=== PATIENT | female | born 1960 | race Caucasian/White ===

== ENCOUNTER 2018-02-24 13:48 | Emergency (ER) | payer OTHER, SELFPAY ==
[2018-02-24 13:51] VITALS: BP 158/100; PULSE 68; RESP 16; TEMP 36.7; O2SAT 97
--- NOTE | 2018-02-24 14:32 | ED.GENADUL_ITS ---
Disposition Clinical Impression: Laceration of finger Disposition: HOME Condition: Good Instructions: Care For Your Stitches (ED), Finger Laceration (ED) Additional Instructions: Please keep the area dry for the next 36 hours and you can then wash gently with soap and water. Please change her bandage daily. Please follow-up with your primary care provider in 7-10 days for suture removal. If you notice any drainage, redness, warmth, fever, or chills please return immediately for reevaluation. Referrals: Bernice Palmer NP [Primary Care Provider] - Medical Decision Making - Medical Decision Making This is a 57-year-old female who presents with a laceration on her fifth digit on her right dominant hand. It is U-shaped in nature. Linear aside for the U-shaped component. Sensation was intact, tetanus is updated. The patient's finger was anesthetized with 1% lidocaine, 5 cc total. The area was then cleaned and scrubbed vigorously with chlorhexidine and irrigated with copious amounts of normal saline, the area was then sutured with 6 simple interrupted sutures. This is performed with 6-0 Vicryl. Patient tolerated this well. No complications, good wound edge reapproximation hemostasis. This time a feel that the patient be safely discharged home with close follow-up with her PCP. We discussed red flags which returned the patient understands. I have extensively reviewed the treatment plan and discharge instructions with the patient. I have addressed all patient concerns at this time. The patient was made aware of what symptoms to monitor for that would warrant a return to the emergency department. Discussed the plan with the patient, they demonstrate verbal understanding and agreement with our assessment and plan at this time. History of Present Illness - General Chief complaint: Laceration Stated complaint: FINGER LACERATION Time Seen by Provider: 02/24/18 14:30 - History of Present Illness Initial comments: This is a 57-year-old female with no past medical history who presents for laceration of her right pinky finger. Patient states that 1 hour prior to arrival she was slicing vegetables with a clean knife when she cut the medial aspect of her pinky on her right dominant hand. She put pressure and bandaging on this and came to the ER for further evaluation. She denies any pain, numbness, or tingling. Her tetanus is up-to-date. Patient denies any other complaints at this time. She denies any numbness or tingling or radiation of the pain. She is not on any blood thinners. She denies any pertinent surgical family or social history. - Related Data Ascorbic Acid [Vitamin C] 500 mg PO DAILY 01/22/14 Multivitamin [Multi-Vitamin Daily] 1 each PO 01/22/14 Vitamin B Complex 1 each PO DAILY 01/22/14 Cholecalciferol (Vitamin D3) [Vitamin D3] 1,000 unit PO DAILY 05/12/14 Ubidecarenone [Coq-10] 100 mg PO BID 05/12/14 Magnesium Amino Acid Chelate [Magnesium] 27 mg PO DAILY #30 t 06/12/14 Tumeric TID 12/11/14 Calcium Carbonate [Calcium] 500 mg PO DAILY #1 04/06/15 Metaxalone [Skelaxin] 800 mg PO TID #60 tab-cap 04/26/16 Flaxseed Oil [Flax Seed Oil] 1,000 mg PO DAILY 09/26/16 Gluc 2Kcl/Chondr/Dione Hy/Hy AC [Glucosamine & Chondroitin Cap] 1 each PO DAILY 10/18/16 Allergies Allergy/AdvReac Type Severity Reaction Status Date / Time lisinopril AdvReac Intermediate Unverified 02/24/18 14:02 Review of Systems Other: 10 point review of systems was performed, pertinent positives and negatives are noted in the history of present illness. Past Medical History - Past Medical History Medical history: hypertension Surgical history: bilateral tubal ligation Family history: cancer (Father of cancer), diabetes (Grandparent and brother have diabetes) - Social History Alcohol use: rarely Drug use: none General Exam - Other Other exam information: 1.Const: Well-nourished, Well-developed, appearing stated age 2.Eyes: PERRL, no conjunctival injection, and symmetrical lids. 3.ENT: Atraumatic external nose and ears. Moist MM. Neck: Symmetric, trachea midline, No thyromegaly. 4.CVS: +S1/S2, No murmurs or gallops. Peripheral pulses 2+ and equal in all extremities. Brisk capillary refill in all extremities. 5.RESP: Unlabored respiratory effort. Clear to auscultation bilaterally. No wheezes rales or rhonchi 6.GI: Soft, Nontender/Nondistended, No hepatosplenomegaly. No guarding or rebound. 7.MSK: Normocephalic. No cyanosis or clubbing, Normal movement of all extremities. 8.Skin: Warm, Dry. Patient demonstrates a U-shaped laceration on the medial aspect of her fifth digit on the right hand, total length is 2 cm. There is a notable flap of skin. Mild bleeding. Sensation is intact. Normal movement of the extremity with normal flexion extension of the pinky with no abnormalities. 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 Sensation grossly intact, no focal neurologic deficits. 10.Psych: (AAO) x3. Appropriate mood and affect Course Vital Signs - 24 hr 02/24/18 13:51 Temperature 36.7 C Pulse 68 Respiratory 16 Rate Blood Pressure 158/100 Pulse Oximetry 97
== END 2018-02-24 14:50 | disposition home or self-care (01) ==
PROVIDERS: Emergency Provider Student in an Organized Health Care Education/Training Program; PCP Nurse Practitioner
DX: S61.216A Laceration without foreign body of right little finger without damage to nail, initial encounter (principal); W26.0XXA Contact with knife, initial encounter; Y93.G1 Activity, food preparation and clean up; I10 Essential (primary) hypertension
CPT/HCPCS: 12001

== ENCOUNTER 2018-03-05 11:30 | Emergency (ER) | payer OTHER, SELFPAY ==
[2018-03-05 11:36] VITALS: BP 143/77; PULSE 74; RESP 16; TEMP 36.7; O2SAT 96
--- NOTE | 2018-03-05 11:59 | W.ED.GENAD ---
Discharge Plan Discharge Details Chief Complaint: SutureRem Clinical Impression: Encounter for removal of sutures Primary Care Provider: Bernice Palmer ED Provider: Elaine Lockett Disposition Patient Disposition: HOME Condition: Good Home Meds and New Rx's Prescriptions: Continue multivitamin [Daily Multi-Vitamin] 1 EACH tablet 1 ea PO RF: 0 ascorbic acid (vitamin C) [Vitamin C] 500 MG tablet 500 mg PO DAILY RF: 0 vitamin B complex 1 EACH tablet 1 ea PO DAILY RF: 0 coenzyme Q10 [CoQ-10] 100 MG capsule 100 mg PO BID RF: 0 cholecalciferol (vitamin D3) 1,000 UNIT capsule 1,000 unit PO DAILY RF: 0 magnesium amino acid chelate 27 MG tablet 27 mg PO DAILY Qty: 30 RF: 12 tumeric TID RF: 0 calcium carbonate [Calcium 500] 500 MG tablet 500 mg PO DAILY Qty: 1 RF: 0 metaxalone [Skelaxin] 800 MG tablet 800 mg PO TID Qty: 60 RF: 3 flaxseed oil 1,000 MG capsule 1,000 mg PO DAILY RF: 0 glucosam-chond kv-lggftr-[id number] ac 1 EACH capsule 1 ea PO DAILY RF: 0 Discharge Instructions Instructions: Laceration (ED) Additional Instructions: Keep wound clean and dry. Wash with running water but do not soak or submerge as this will increase your risk of infection. If you develop redness, warmth, drainage, increased pain, fevers/chills or other new/worsening symptoms please seek care urgently once again. Do not attempt to pop your collection of blood. Follow up with primary care as needed. Referrals: Bernice Palmer, RAFA [Primary Care Provider] - Discharge Data Discharge Date/Time-TO BE ENTERED AT DEPARTURE: 03/05/18 12:15 Medical Decision Making [facility] Narrative Medical decision making narrative: Patient presents with chief complaint of suture removal. Patient had sutures placed for laceration to the ulnar side of the 5th digits right hand. Wound is healing without signs of infection. However, she is noted to have a hematoma that is well defined. No pain with palpation. She has limited sensation over the hematoma, otherwise intact. Hematoma is approximately 7mm in diameter. She is feeling well. We discusses signs and symptoms of infection and when to seek care urgently once again. #6 sutures were removed by myself. Wound is healing well with well intact edges. Advised on activies that may increase risk of infection. All of her questions and concerns were addressed, she is in agreement with this plan. HPI - General Adult General Date/Time Provider Initiated Documentation: 03/05/18 11:35. Limitations to Documentation: no limitations. Information obtained by: patient. History of Present Illness 57 year old F presents to the emergency department with the chief complaint of suture removal, Quality is described as other (none), and is localized to the right and upper extremity (5ht digit). Patient reports no radiation. Related Data Home Medications Medication Instructions Recorded Confirmed ascorbic acid (vitamin C) [Vitamin 500 mg PO DAILY 01/22/14 02/24/18 C] multivitamin [Daily Multi-Vitamin] 1 ea PO 01/22/14 01/29/14 vitamin B complex 1 ea PO DAILY 01/22/14 02/24/18 cholecalciferol (vitamin D3) 1,000 unit PO DAILY 05/12/14 02/24/18 coenzyme Q10 [CoQ-10] 100 mg PO BID 05/12/14 02/24/18 Tumeric TID 12/11/14 flaxseed oil 1,000 mg PO DAILY 09/26/16 02/24/18 glucosam-chond uy-qndkfl-fu ac 1 ea PO DAILY 10/18/16 02/24/18 Allergies Allergy/AdvReac Type Severity Reaction Status Date / Time lisinopril AdvReac Intermediate Unverified 02/24/18 14:02 General Stated Complaint: SutureRem TAMIKA: 5 Review of Systems Constitutional Reports as per HPI, Denies chills and Denies fever(s) Respiratory Comments: no symptoms reported Musculoskeletal Reports as per HPI and Reports numbness (over darkened area) Integumentary/Breasts Reports as per HPI Neurologic Reports as per HPI and Reports numbness (over darkened area) PFSH Family History Mother Sleep apnea Heart disease Father Personal history of malignant neoplasm Sister No problems noted. Brother Diabetes Brother No problems noted. Brother No problems noted. Brother No problems noted. Social History Smoking/Tobacco Use Status: Never Surgical History Ligation of fallopian tube (10/11/05) Exam Const General: cooperative, healthy appearing, comfortable, no acute distress and well developed Nutritional Appearance: average body habitus Orientation: alert and awake Resp Effort & Inspection: normal respiratory effort and no respiratory distress Skin General skin exam: rashes and/or lesions noted (Patient has well healing laceration to the ulnar side of the right 5th digit. No signs of infection. No pain with palpation. She has a well defined darkened area, consistent with a small hematoma along the ulnar side of the sound. The laceration itself does not seem to be involved, proximal to th) Lesions: lesion noted Rashes: no rashes Trauma: laceration (as above) Nails: normal Neuro General: alert and awake Cognition: normal cognition Speech: speech normal Gait: normal gait Sensory Exam: sensory deficits noted (patient has limited sensation over the darkened area which appears to be a healing hematoma. Sensation in digit otherwise intact.) Extrem General: abnormal to inspection (as above), full ROM and normal capillary refill Course Vital Signs Temperature 36.7 C 03/05/18 11:36 Pulse 74 03/05/18 11:36 Respiratory Rate 16 03/05/18 11:36 Blood Pressure 143/77 H 03/05/18 11:36 Pulse Oximetry 96 03/05/18 11:36 Temperature 36.7 C 03/05/18 11:36 Pulse 74 03/05/18 11:36 Respiratory Rate 16 03/05/18 11:36 Blood Pressure 143/77 H 03/05/18 11:36 Pulse Oximetry 96 03/05/18 11:36
--- NOTE | 2018-03-05 12:04 | ED.GENADUL_ITS ---
Discharge Plan Discharge Details Chief Complaint: SutureRem Clinical Impression: Encounter for removal of sutures Primary Care Provider: Bernice Palmer ED Provider: Elaine Lockett Disposition Patient Disposition: HOME Condition: Good Home Meds and New Rx's Prescriptions: Continue multivitamin [Daily Multi-Vitamin] 1 EACH tablet 1 ea PO RF: 0 ascorbic acid (vitamin C) [Vitamin C] 500 MG tablet 500 mg PO DAILY RF: 0 vitamin B complex 1 EACH tablet 1 ea PO DAILY RF: 0 coenzyme Q10 [CoQ-10] 100 MG capsule 100 mg PO BID RF: 0 cholecalciferol (vitamin D3) 1,000 UNIT capsule 1,000 unit PO DAILY RF: 0 magnesium amino acid chelate 27 MG tablet 27 mg PO DAILY Qty: 30 RF: 12 tumeric TID RF: 0 calcium carbonate [Calcium 500] 500 MG tablet 500 mg PO DAILY Qty: 1 RF: 0 metaxalone [Skelaxin] 800 MG tablet 800 mg PO TID Qty: 60 RF: 3 flaxseed oil 1,000 MG capsule 1,000 mg PO DAILY RF: 0 glucosam-chond lj-qwfwcy-rl ac 1 EACH capsule 1 ea PO DAILY RF: 0 Discharge Instructions Instructions: Laceration (ED) Additional Instructions: Keep wound clean and dry. Wash with running water but do not soak or submerge as this will increase your risk of infection. If you develop redness, warmth, drainage, increased pain, fevers/chills or other new/worsening symptoms please seek care urgently once again. Do not attempt to pop your collection of blood. Follow up with primary care as needed. Referrals: Bernice Palmer, RAFA [Primary Care Provider] - Discharge Data Discharge Date/Time-TO BE ENTERED AT DEPARTURE: 03/05/18 12:15 Medical Decision Making [facility] Narrative Medical decision making narrative: Patient presents with chief complaint of suture removal. Patient had sutures placed for laceration to the ulnar side of the 5th digits right hand. Wound is healing without signs of infection. However , she is noted to have a hematoma that is well defined. No pain with palpation. She has limited sensation over the hematoma, otherwise intact. Hematoma is approximately 7mm in diameter. She is feeling well. We discusses signs and symptoms of infection and when to seek care urgently once again. #6 sutures were removed by myself. Wound is healing well with well intact edges. Advised on activies that may increase risk of infection. All of her questions and concerns were addressed, she is in agreement with this plan. HPI - General Adult General Date/Time Provider Initiated Documentation: 03/05/18 11:35 . Limitations to Documentation: no limitations . Information obtained by: patient . History of Present Illness 57 year old F presents to the emergency department with the chief complaint of suture removal, Quality is described as other (none), and is localized to the right and upper extremity (5ht digit). Patient reports no radiation. Related Data Home Medications Medication Instructions Recorded Confirmed ascorbic acid (vitamin C) [Vitamin 500 mg PO DAILY 01/22/14 02/24/18 C] multivitamin [Daily Multi-Vitamin] 1 ea PO 01/22/14 01/29/14 vitamin B complex 1 ea PO DAILY 01/22/14 02/24/18 cholecalciferol (vitamin D3) 1,000 unit PO DAILY 05/12/14 02/24/18 coenzyme Q10 [CoQ-10] 100 mg PO BID 05/12/14 02/24/18 Tumeric TID 12/11/14 flaxseed oil 1,000 mg PO DAILY 09/26/16 02/24/18 glucosam-chond eh-[id number]-[id number] ac 1 ea PO DAILY 10/18/16 02/24/18 Allergies Allergy/AdvReac Type Severity Reaction Status Date / Time lisinopril AdvReac Intermediate Unverified 02/24/18 14:02 General Stated Complaint: SutureRem TAMIKA: 5 Review of Systems Constitutional Reports as per HPI, Denies chills and Denies fever(s) Respiratory Comments: no symptoms reported Musculoskeletal Reports as per HPI and Reports numbness (over darkened area) Integumentary/Breasts Reports as per HPI Neurologic Reports as per HPI and Reports numbness (over darkened area) PFSH Family History Mother Sleep apnea Heart disease Father Personal history of malignant neoplasm Sister No problems noted. Brother Diabetes Brother No problems noted. Brother No problems noted. Brother No problems noted. Social History Smoking/Tobacco Use Status: Never Surgical History Ligation of fallopian tube (10/11/05) Exam Const General: cooperative, healthy appearing, comfortable, no acute distress and well developed Nutritional Appearance: average body habitus Orientation: alert and awake Resp Effort & Inspection: normal respiratory effort and no respiratory distress Skin General skin exam: rashes and/or lesions noted (Patient has well healing laceration to the ulnar side of the right 5th digit. No signs of infection. No pain with palpation. She has a well defined darkened area, consistent with a small hematoma along the ulnar side of the sound. The laceration itself does not seem to be involved, proximal to th) Lesions: lesion noted Rashes: no rashes Trauma: laceration (as above) Nails: normal Neuro General: alert and awake Cognition: normal cognition Speech: speech normal Gait: normal gait Sensory Exam: sensory deficits noted (patient has limited sensation over the darkened area which appears to be a healing hematoma. Sensation in digit otherwise intact.) Extrem General: abnormal to inspection (as above), full ROM and normal capillary refill Course Vital Signs Temperature 36.7 C 03/05/18 11:36 Pulse 74 03/05/18 11:36 Respiratory Rate 16 03/05/18 11:36 Blood Pressure 143/77 H 03/05/18 11:36 Pulse Oximetry 96 03/05/18 11:36 Temperature 36.7 C 03/05/18 11:36 Pulse 74 03/05/18 11:36 Respiratory Rate 16 03/05/18 11:36 Blood Pressure 143/77 H 03/05/18 11:36 Pulse Oximetry 96 03/05/18 11:36
== END 2018-03-05 12:15 | disposition home or self-care (01) ==
PROVIDERS: Emergency Provider Physician Assistant; PCP Nurse Practitioner
DX: S61.216D Laceration without foreign body of right little finger without damage to nail, subsequent encounter (principal); W26.0XXD Contact with knife, subsequent encounter; Z48.02 Encounter for removal of sutures

== ENCOUNTER 2018-04-08 08:46 | Outpatient (CLI) | payer OTHER, SELFPAY ==
[2018-04-08 09:31] LABS: HCT 41.6 % (36.0-46.0); HGB 14.2 g/dL (12.0-15.5); Mean Corp. HGB Concentration 34.1 g/dL (32.0-36.0); Mean Corpuscular Volume 85.1 fL (80-95); Mean Platelet Volume 10.2 fL (8.0-11.0); Platelet Count 200 x1000/uL (130-400); RBC 4.89 m/cumm (4.00-5.20); RBC Distribution Width 12.8 % (11.7-14.6); White Blood Cell Count 5.42 k/cumm (4.4-10.8)
[2018-04-08 10:19] LABS: ALT 32 U/L (12-78); AST 31 U/L (15-37); Albumin 3.9 g/dL (3.4-5.0); Alkaline Phosphatase 70 U/L (46-116); Anion Gap 5.2 mmol/L (3-11); BUN 19 mg/dL (7-18); Bilirubin, Total 1.2 mg/dL (0.2-1.0); CO2 29.8 mmol/L (21.0-32.0); CREATININE 0.78 mg/dL (0.55-1.02); Calcium 8.8 mg/dL (8.5-10.1); Chloride 106 mmol/L (98-107); Cholesterol 199 mg/dL (50-200); Glucose 96 mg/dL (70-100); HDL Cholesterol 69 mg/dL (40-60); LDL CHOLESTEROL 120 mg/dL (<100); Potassium 4.3 mmol/L (3.5-5.1); Sodium 141 mmol/L (136-145); TSH (W/Ref FT4) 1.08 uIU/mL (0.358-3.74); Total Protein 6.9 g/dL (6.4-8.2); Triglyceride 79 mg/dL (30-150)
== END 2018-04-08 09:06 ==
PROVIDERS: PCP Nurse Practitioner; Visit Provider Nurse Practitioner
DX: E04.2 Nontoxic multinodular goiter (principal); K21.9 Gastro-esophageal reflux disease without esophagitis; Z00.00 Encounter for general adult medical examination without abnormal findings; G47.33 Obstructive sleep apnea (adult) (pediatric)
CPT/HCPCS: 36415; 80053; 80061; 83721; 85027; 84443

== ENCOUNTER 2018-04-24 01:25 | Outpatient (CLI) | payer OTHER, SELFPAY ==
--- NOTE | 2018-04-24 08:50 | DI.MAMMO_ITS ---
SYMPTOM/DIAGNOSIS: SCREENING, Z12.31 MAMMOGRAMS: Mammograms were interpreted according to the usual protocol including computer analysis with CAD system, tomosynthesis and C view imaging. Comparison is made with exams from [id number]. The breasts are composed of scattered fibroglandular densities. Scattered benign skin calcifications are again noted. No suspicious masses or suspicious microcalcifications are seen. There has been no significant change. IMPRESSION: Category 2B, negative mammogram with benign findings. Routine screening is recommended. SA ASSESSMENT OF FINDINGS: Negative with benign findings. Category 2. Patient will receive a letter notifying them of these results. BI-RADS category B. There are scattered areas of fibroglandular density.
== END 2018-04-24 01:45 ==
PROVIDERS: PCP Nurse Practitioner; Visit Provider Nurse Practitioner Women's Health
DX: Z12.31 Encounter for screening mammogram for malignant neoplasm of breast (principal)
CPT/HCPCS: 77063; 77067

== ENCOUNTER 2018-09-30 00:37 | Outpatient (CLI) | payer OTHER, SELFPAY ==
--- NOTE | 2018-09-30 16:00 | DI.US_ITS ---
SYMPTOM/DIAGNOSIS: MULTI NODULAR GOITER, E04.2 THYROID ULTRASOUND: The right thyroid lobe measures 5.4 by 1.9 by 2.4 cm. and contains multiple nodules, the largest of which measures 15 by 14 by 11 mm. The isthmus is 7.5 mm. thick and also contains multiple nodules. The left thyroid lobe measures 5.11 by 1.6 by 2.5 cm. Numerous nodular regions are noted in the left thyroid lobe, the largest of which measures 2.5 by 2.8 by 1.7 cm. SUMMARY: An enlarged multi nodular thyroid gland is demonstrated.
== END 2018-09-30 00:57 ==
PROVIDERS: PCP Nurse Practitioner; Visit Provider Otolaryngology
DX: E04.2 Nontoxic multinodular goiter (principal)
CPT/HCPCS: 76536

== ENCOUNTER 2018-12-26 09:05 | Outpatient (CLI) | payer OTHER, SELFPAY ==
--- NOTE | 2018-12-26 08:00 | DI.RAD_ITS ---
SYMPTOM/DIAGNOSIS: LEFT HIP, LOW BACK PAIN M25.552 LEFT HIP AND PELVIS: 12/26 Two views were obtained. There is some narrowing of the cartilaginous joint spaces of both hips, right greater than left. No significant bony abnormality seen. CONCLUSION: Mild DJD both hips, right greater than left.
--- NOTE | 2018-12-26 08:00 | DI.RAD_ITS ---
SYMPTOM/DIAGNOSIS: LT HIP AND LOW BACK PAIN, M25.552, M54.5 LUMBOSACRAL SPINE: 12/26 Five views were obtained. There is narrowing of the intervertebral disc spaces throughout the lower thoracic and lumbar region. There are multi-level and plate and facet hypertrophic degenerative changes. No evidence of spondylolysis or spondylolisthesis. No evidence of fracture. CONCLUSION: Severe DJD and degenerative disc disease of the lumbar spine.
== END 2018-12-26 09:25 ==
PROVIDERS: PCP Nurse Practitioner; Visit Provider Nurse Practitioner
DX: M25.552 Pain in left hip (principal); M54.5 Low back pain; M16.0 Bilateral primary osteoarthritis of hip; M51.36 Other intervertebral disc degeneration, lumbar region; M47.816 Spondylosis without myelopathy or radiculopathy, lumbar region
CPT/HCPCS: 72110; 73502

== ENCOUNTER 2019-06-05 01:37 | Outpatient (CLI) | payer OTHER, SELFPAY ==
--- NOTE | 2019-06-05 09:02 | DI.US_ITS ---
EXAM: US THYROID CLINICAL HISTORY: MULTINODULAR GOITER E04.2 TECHNIQUE: Ultrasound performed using standard protocol. COMPARISON: US thyroid from 09/30/2018 FINDINGS: Both lobes of the thyroid are again noted to be enlarged and show overall heterogeneous echotexture. There has been no change in the size of the larger nodules seen bilaterally. IMPRESSION: Multinodular thyroid. No change in size of nodules.
== END 2019-06-05 01:57 ==
PROVIDERS: PCP Nurse Practitioner Family; Visit Provider Otolaryngology
DX: E04.2 Nontoxic multinodular goiter (principal)
CPT/HCPCS: 76536

== ENCOUNTER 2020-01-25 12:11 | Emergency (ER) | payer OTHER, SELFPAY ==
[2020-01-25] VITALS (30 sets, daily range): BP systolic 140–166; BP diastolic 81–96; PULSE 82–100; RESP 11–29; TEMP 36.6; O2SAT 82–97
--- NOTE | 2020-01-25 12:00 | RT.EKG_ITS ---
APPROVED REPORT Exam: Resting ECG Patient Location: E HR:93 bpm ECG Measurements Heart Rate 93 AXIS CO 164 P 45 QRSd 86 QRS -17 QT 361 T 40 QTc 448 <Conclusion> Sinus rhythm...normal P axis, V-rate93
--- NOTE | 2020-01-25 12:46 | ED.GENADUL_ITS ---
Discharge Plan Disposition Patient Disposition: HOME Condition: Stable Discharge Details Chief Complaint: Chest Pain Clinical Impression: GERD (gastroesophageal reflux disease) Primary Care Provider: Niru Felix ED Provider: Viral Mae Home Meds and New Rx's Prescriptions: New famotidine 20 mg tablet 20 mg PO QHS Qty: 30 RF: 0 Continued ascorbic acid (vitamin C) [Vitamin C] 500 MG tablet 500 mg PO DAILY RF: 0 cholecalciferol (vitamin D3) 1,000 UNIT capsule 1,000 unit PO DAILY RF: 0 tumeric TID RF: 0 amlodipine 5 mg tablet 5 mg PO DAILY AM RF: 0 acetaminophen [Acetaminophen Pain Relief] 500 mg Tablet PRNRF: 0 Discharge Instructions Instructions: Gastroesophageal Reflux Disease (ED) Additional Instructions: Please observe a bland diet. We will order an outpatient stress test for you today. Please take famotidine as prescribed for 1 month. This may be available [id number]. Return for any acute concern. Discharge Data Discharge Date/Time-TO BE ENTERED AT DEPARTURE: 01/25/20 15:57 Medical Decision Making 59-year-old female presents with days of intermittent episodes of anterior chest tightness that feels like a band across her chest. Seems somewhat brought on by exertion and somewhat improved with rest. She has not had significant cough or fever. She did see her primary care physician and reports having outpatient blood test ordered but not yet drawn. She was started on amlodipine starting yesterday. Broad differential diagnosis considered including esophagitis, ACS, must consider PE. Blood pressure 166/86, pulse 89, 96% sat on room air. Screening EKG reveals a normal sinus rhythm with a rate of 93, there is no ST segment elevation present. Laboratories are reassuring white blood cell count is 7, hematocrit 41, platelets 232, d-dimer 466, unremarkable chemistries, normal LFTs, normal troponin x2, BNP of 40. There was a question per radiology of pneumoperitoneum on chest x-ray and patient was referred for CT images of chest, abdomen. CT has no evidence of pneumoperitoneum. There is positive cholelithiasis. There is wall thickening of the duodenum and proximal small bowel. There is note of a 7 mm groundglass nodule in the right lower lobe with recommendation to follow-up in 6 to 12 months. I will arrange for outpatient stress testing to complete risk stratification for coronary disease. She previously has a history of GERD and I will place her on a course of famotidine. She is stable and improved, no further discomfort at this time. Lab Data Lab results reviewed: Yes I reviewed the patient's lab results. Labs: Laboratory Results - last 24 hr 01/25/20 01/25/20 01/25/20 12:30 12:30 12:30 WBC RBC Hgb Hct MCV MCH MCHC RDW Plt Count MPV Immature Gran % Neutrophils % Lymphocytes % Monocytes % Eosinophils % Basophils % Absolute Neutrophils Absolute Lymphocytes Absolute Monocytes Absolute Eosinophils Absolute Basophils D-Dimer 466 Sodium 142 Potassium 3.7 Chloride 106 Carbon Dioxide 30.1 Anion Gap 5.9 BUN 17 Creatinine 0.84 Estimated GFR/1.73 m2 >= 60.00 Glucose 98 Calcium 9.3 Magnesium 2.2 Total Bilirubin 1.0 AST 32 ALT 48 Alkaline Phosphatase 67 Troponin I Cancelled < 0.05 NT-Pro-B Natriuret Pep 40 Total Protein 7.2 Albumin 3.8 01/25/20 12:30 WBC 7.63 RBC 5.08 Hgb 14.4 Hct 41.7 MCV 82.1 MCH 28.3 MCHC 34.5 RDW 12.7 Plt Count 232 MPV 10.1 Immature Gran % 0.1 Neutrophils % 67.2 Lymphocytes % 24.6 Monocytes % 6.3 Eosinophils % 1.3 Basophils % 0.5 Absolute Neutrophils 5.12 Absolute Lymphocytes 1.88 Absolute Monocytes 0.48 Absolute Eosinophils 0.10 Absolute Basophils 0.04 D-Dimer Sodium Potassium Chloride Carbon Dioxide Anion Gap BUN Creatinine Estimated GFR/1.73 m2 Glucose Calcium Magnesium Total Bilirubin AST ALT Alkaline Phosphatase Troponin I NT-Pro-B Natriuret Pep Total Protein Albumin HPI General Mode of arrival: ambulatory . Date/Time Provider Initiated Documentation: 01/25/20 12:20 . Limitations to Documentation: no limitations . Information obtained by: patient . History of Present Illness 59 year old F presents to the emergency department with the chief complaint of Chest tightness, described as mild and moderate, Quality is described as dull, and is localized to the chest. Patient reports radiation to back. Patient started experiencing this day(s) and it has been intermittent. No relieving factors improve symptom(s), Movement worsens symptoms . Patient notes denies cough, diaphoresis, fever/chills and syncope. Patient did receive the following treatments prior to arrival, none Related Data Home Medications Medication Instructions Recorded Confirmed ascorbic acid (vitamin C) [Vitamin 500 mg PO DAILY 01/22/14 01/25/20 C] cholecalciferol (vitamin D3) 1,000 unit PO DAILY 05/12/14 01/25/20 Tumeric TID 12/11/14 12/25/18 acetaminophen [Acetaminophen Pain PRN 01/25/20 Relief] amlodipine 5 mg PO DAILY AM 01/25/20 01/25/20 famotidine 20 mg PO QHS #30 tab 01/25/20 Previous Rx's Medication Instructions Recorded famotidine 20 mg PO QHS #30 tab 01/25/20 Allergies Allergy/AdvReac Type Severity Reaction Status Date / Time lisinopril AdvReac Intermediate faitgue, Unverified 12/25/18 16:36 dizziness General Stated Complaint: Chest Pain TAMIKA: 2 Review of Systems Narrative: No cough or recent travel. Had outpatient labs ordered but not drawn. 6 systems reviewed and otherwise negative PFSH Family History Mother Sleep apnea Heart disease Father Personal history of malignant neoplasm lung ca age 37 Brother Diabetes Hyperlipidemia Brother Hypertension Brother Hypertension Brother Hypertension Social History Smoking/Tobacco Use Status: Never Alcohol Intake: current Alcohol Intake frequency: holidays/special occasions only Drug use: Never Substance use type: does not use Household members: spouse Housing: house Number of Children: 2 What type of physical activity do you participate in: none Working smoke detector in home: Yes Fire extinguisher in home: Yes Carbon monox detector in home: Yes Do you feel safe at home: Yes Do you feel safe in your relationship?: Yes Exam Narrative Exam Narrative: GEN: awake, alert, oriented 3. Pleasant, well groomed, interactive. HEAD: Normocephalic, atraumatic ENT: Mucous membranes moist, oropharynx unremarkable, External ear exam unremarkable EYES: PERRL, EOMI NECK: Full ROM, no CHERYLE, no menigismus CHEST/RESP: Nontender, clear to auscultation bilateral, no wheeze/rhonchi/rales CARDIOVASCULAR: RRR, no murmur, rub mariann. 2+ Rad pulse bilateral ABDOMEN: Soft, nontender, no mass. +Bowel sounds EXT: Full ROM, no edema, no rash Neuro: Grossly normal neurologic exam, conversant, interactive. Psych: Speech fluent, thoughts congruent, affect normal Course Vital Signs Vital signs: Vital Signs Temperature 36.6 C 01/25/20 12:21 Pulse 89 01/25/20 12:21 Respiratory Rate 18 01/25/20 12:21 Blood Pressure 166/86 H 01/25/20 12:21 Pulse Oximetry 96 01/25/20 12:21 Temperature 36.6 C 01/25/20 12:21 Pulse 89 01/25/20 12:21 Respiratory Rate 18 01/25/20 12:21 Blood Pressure 166/86 H 01/25/20 12:21 Pulse Oximetry 96 01/25/20 12:21 Oxygen Delivery Method Room Air 01/25/20 12:21 Oxygen Flow Rate 0 01/25/20 12:21 Pain Level 1 01/25/20 12:21
[2020-01-25 12:54] LABS: Abs Immature Grans 0.01 k/cumm (0.0-0.09); Absolute Basophil Count 0.04 k/cumm (0.0-0.2); Absolute Lymphocyte Count 1.88 k/cumm (1.2-3.4); Absolute Monocyte Count 0.48 k/cumm (0.11-0.7); Absolute Neutrophil Count 5.12 k/cumm (1.2-6.7); Basophils % 0.5; Eosinophils % 1.3; HCT 41.7 % (36.0-46.0); HGB 14.4 g/dL (12.0-15.5); Immature Grans % 0.1 %; Lymphocytes % 24.6; Mean Corp. HGB Concentration 34.5 g/dL (32.0-36.0); Mean Corpuscular Hemoglobin 28.3 pg (27.0-33.0); Mean Corpuscular Volume 82.1 fL (80-95); Mean Platelet Volume 10.1 fL (8.0-11.0); Monocytes % 6.3; Neutrophils % 67.2; Platelet Count 232 x1000/uL (130-400); RBC 5.08 m/cumm (4.00-5.20); RBC Distribution Width 12.7 % (11.7-14.6); White Blood Cell Count 7.63 k/cumm (4.4-10.8)
--- NOTE | 2020-01-25 13:05 | DI.RAD_ITS ---
EXAM: XR CHEST 2V PA LATERAL CLINICAL HISTORY: chest tightness TECHNIQUE: 2D digital imaging was performed. COMPARISON: No exams were available for comparison FINDINGS: MEDIASTINUM: Normal. HEART: Normal. PULMONARY VASCULATURE: Normal. LUNGS: Clear. PLEURAL SPACE: No pleural effusion or pneumothorax. BONE:Normal. OTHER FINDINGS:Stable elevated right diaphragm. IMPRESSION: No acute pulmonary findings. DATA REPOSITORY: RADIATION DOSE DELIVERED:
[2020-01-25 13:08] LABS: ALT 48 U/L (14-59); AST 32 U/L (15-37); Albumin 3.8 g/dL (3.4-5.0); Alkaline Phosphatase 67 U/L (46-116); Anion Gap 5.9 mmol/L (3-11); BUN 17 mg/dL (7-18); CO2 30.1 mmol/L (21.0-32.0); CREATININE 0.84 mg/dL (0.55-1.02); Calcium 9.3 mg/dL (8.5-10.1); Chloride 106 mmol/L (98-107); Glucose 98 mg/dL (74-106); Magnesium 2.2 mg/dL (1.8-2.4); Potassium 3.7 mmol/L (3.5-5.1); Sodium 142 mmol/L (136-145); Total Protein 7.2 g/dL (6.4-8.2)
[2020-01-25 13:09] LABS: Troponin I < 0.05 ng/mL (<0.06)
[2020-01-25 13:13] LABS: NT-proBNP 40 pg/mL (<300)
[2020-01-25 13:22] LABS: D-Dimer 466 ng/mlFEU (<500)
--- NOTE | 2020-01-25 13:30 | DI.CT_ITS ---
EXAM: CT CHEST PE ABD PELVIS W CLINICAL HISTORY: chest tightness /?pneumoperitoenum on CXR. TECHNIQUE: Imaging Protocol: Axial CT angiography was performed with multi-slice acquisition and mu lti-planar and/or 3D reconstructions. CONTRAST MATERIAL: Intravenous: Omnipaque 350 Contrast volume:100 ml COMPARISON: US US thyroid from 09/30/2018 US US THYROID from 06/05/2019 CR,XR XR CHEST 2V PA LATERAL from 01/25/2020 FINDINGS: Chest CT: Pulmonary Arteries: No evidence of filling defect to suggest pulmonary emboli. Tracheobronchial tree: Patent where visualized. Mediastinum and Jocelyn: No dominant adenopathy or fluid collection. Thyroid: Enlarged with multiple no dules. Pulmonary parenchyma: Limited evaluation due to lack of pulmonary inflation and respiratory motion. Basilar atelectasis. 7 millimeter nodule in superior segment of the right lower lobe.. Pleura: No effusion or pneumothorax. Heart: The heart is not dilated. No coronary artery calcifications are seen. Aorta: Thoracic aorta non-dilated. Bones: Degenerative disc changes. Abdomen and pelvic CT: Liver: Severe fatty infiltration. A vague area of increased attenuation is noted in the left lobe wh ich may represent a small area of fatty sparing versus perfusion. No biliary dilatation. Multiple s tones are noted in the gallbladder. There is no gallbladder wall thickening. There is no evidence of free air or free fluid. The pancreas, spleen, adrenals and kidneys are unremarkable. No bowel dilatation or inflammatory changes are seen. The appendix is not dilated. There is mild di verticulosis. There is no aortic aneurysm or dissection. There is mild mural calcification. The bladder, uterus and ovaries are unremarkable. Degenerative changes are seen in the spine. IMPRESSION: No evidence of pulmonary embolism. 7 millimeter nodule in the superior segment of the right lower lob e. Six-month follow-up chest CT could be considered. Severe fatty infiltration of the liver. RADIATION DOSE DELIVERED: Total DLP DATA REPOSITORY: All CT scans at this facility are submitted to the National Radiology Data Registry (NRDR) Dose Index Registry (DIR) with the [employer] (A[employer]). RADIATION OPTIMIZATION: All CT scans at this facility use at least one of these dose optimization te chniques: automated exposure control; mA and/or kV adjustment per patient size (includes targeted exa ms where dose is matched to clinical indication); or iterative reconstruction.
--- NOTE | 2020-01-25 13:37 | DI.VRAD_ITS ---
Addendum created by Servando Tolentino DO on 01/25/2020 1:40:38 PM EDT Addendum: Suspected pneumoperitoneum with discussed with Dr. Viral Mae by Dr. Tolentino at approximately 12:40 p.m. on 01/25/2020 by phone. Central standard time. Initial report created on 01/25/2020 1:37:02 PM EDT PROCEDURE INFORMATION: Exam: XR Chest, 2 Views Exam date and time: 01/25/2020 1:03 PM Age: 59 years old Clinical indication: Other: Chest tightness TECHNIQUE: Imaging protocol: XR of the chest Views: 2 views. COMPARISON: SC PORTABLE CHEST ONE VIEW 09/21/2016 6:33 AM FINDINGS: Lungs: Clear lungs. Pleural space: No pneumothorax. No sizeable effusion. Heart/Mediastinum: Normal cardiomediastinal silhouette. Diaphragm: There is mild elevation of the right hemidiaphragm with what appears to be a linear like lucency under the right hemidiaphragm on both the frontal and lateral projections. Bones/joints: No acute displaced fractures are identified. IMPRESSION: 1. Clear lungs. 2. Suspected pneumoperitoneum. Dictated and Authenticated by: Servando Tolentino MD. Ordering:ANSELMO Stratton MD
[2020-01-25] MEDS: Omnipaque 350 MG/ML 100 ML BTL IJ (14:06)
[2020-01-25] MEDS: Normal Saline - Diluent 50 ML VIAL IV (14:07)
[2020-01-25] MEDS: Normal Saline Flush 10 ML SYR IVP (14:08)
--- NOTE | 2020-01-25 14:45 | RT.EKG_ITS ---
APPROVED REPORT Exam: Resting ECG Patient Location: E HR:94 bpm ECG Measurements Heart Rate 94 AXIS PA 193 P 51 QRSd 86 QRS -23 QT 388 T 55 QTc 487 <Conclusion> Sinus rhythm...normal P axis, V-rate94
[2020-01-25 15:25] LABS: Troponin I < 0.05 ng/mL (<0.06)
--- NOTE | 2020-01-25 15:31 | DI.VRAD_ITS ---
PROCEDURE INFORMATION: Exam: CT Angiography Chest With Contrast Exam date and time: 01/25/2020 2:05 PM Age: 59 years old Clinical indication: Other: Chest tightness /? Pneumoperitoenum on cxr TECHNIQUE: Imaging protocol: Computed tomographic angiography of the chest with intravenous contrast. 3D rendering: MIP and/or 3D reconstructed images were created by the technologist. Radiation optimization: All CT scans at this facility use at least one of these dose optimization techniques: automated exposure control; mA and/or kV adjustment per patient size (includes targeted exams where dose is matched to clinical indication); or iterative reconstruction. Contrast material: 0MNIPAQUE 35; Contrast volume: 100 ml; Contrast route: INTRAVENOUS (IV); COMPARISON: CR XR CHEST 2V PA LATERAL 01/25/2020 1:01 PM FINDINGS: Lungs: 7 mm ground-glass nodule is seen within the right lower lobe image 22 series 4. Limited evaluation of the lung parenchyma secondary to motion. Scattered areas of atelectasis are present throughout both lungs. Heart: Heart is normal size. Liver: There is an area of vague non mass-like enhancement within segment 4 of the liver which is likely perfusional. Image 30 series 10 . Unremarkable liver otherwise. Gallbladder and bile ducts: Cholelithiasis. Nondilated ducts. Pancreas: Fatty infiltration of the pancreas. Spleen: Unremarkable spleen. Adrenals: Unremarkable adrenals. Kidneys and ureters: Unremarkable kidneys. Stomach and bowel: Nonobstructed bowel. Diverticulosis without evidence of diverticulitis. There is prominent wall thickening the duodenum and proximal small bowel. Appendix: Normal caliber appendix. Intraperitoneal space: No free air or free fluid. Vasculature: Scattered vascular calcifications. Normal caliber aorta. There is a prominent phlebolith on image 65 series 10 in the region of the right gonadal vein which appears just adjacent to the right ureter. Lymph nodes: No axillary, hilar, or mediastinal lymphadenopathy. Clear central airways. No suspicious lymphadenopathy. Bladder: Unremarkable bladder. Visualized portions of both ureters are within normal limits. Reproductive: Unremarkable. Bones/joints: Scattered bony degenerative changes. No acute fracture or dislocation. Soft tissues: Unremarkable superficial soft tissues. Other findings: Heterogeneous appearance of an enlarged thyroid gland. IMPRESSION: No evidence of pneumoperitoneum. Cholelithiasis. Prominent wall thickening of the duodenum and proximal small bowel may be seen in the setting of enteritis. 7 mm ground-glass nodule within the right lower lobe. Follow-up 6-12 months. PROCEDURE INFORMATION: Exam: CT Abdomen And Pelvis With Contrast Exam date and time: 01/25/2020 2:05 PM Age: 59 years old Clinical indication: Other: Chest tightness /? Pneumoperitoenum on cxr TECHNIQUE: Imaging protocol: Computed tomography of the abdomen and pelvis with intravenous contrast. Radiation optimization: All CT scans at this facility use at least one of these dose optimization techniques: automated exposure control; mA and/or kV adjustment per patient size (includes targeted exams where dose is matched to clinical indication); or iterative reconstruction. Contrast material: 0MNIPAQUE 35; Contrast volume: 100 ml; Contrast route: INTRAVENOUS (IV); COMPARISON: CR XR CHEST 2V PA LATERAL 01/25/2020 1:01 PM FINDINGS: Lungs: 7 mm ground-glass nodule is seen within the right lower lobe image 22 series 4. Limited evaluation of the lung parenchyma secondary to motion. Scattered areas of atelectasis are present throughout both lungs. Heart: Heart is normal size. Liver: There is an area of vague non mass-like enhancement within segment 4 of the liver which is likely perfusional. Image 30 series 10 . Unremarkable liver otherwise. Gallbladder and bile ducts: Cholelithiasis. Nondilated ducts. Pancreas: Fatty infiltration of the pancreas. Spleen: Unremarkable spleen. Adrenals: Unremarkable adrenals. Kidneys and ureters: Unremarkable kidneys. Stomach and bowel: Nonobstructed bowel. Diverticulosis without evidence of diverticulitis. There is prominent wall thickening the duodenum and proximal small bowel. Appendix: Normal caliber appendix. Intraperitoneal space: No free air or free fluid. Vasculature: Scattered vascular calcifications. Normal caliber aorta. There is a prominent phlebolith on image 65 series 10 in the region of the right gonadal vein which appears just adjacent to the right ureter. Lymph nodes: No axillary, hilar, or mediastinal lymphadenopathy. Clear central airways. No suspicious lymphadenopathy. Bladder: Unremarkable bladder. Visualized portions of both ureters are within normal limits. Reproductive: Unremarkable. Bones/joints: Scattered bony degenerative changes. No acute fracture or dislocation. Soft tissues: Unremarkable superficial soft tissues. Other findings: Heterogeneous appearance of an enlarged thyroid gland. IMPRESSION: No evidence of pneumoperitoneum. Cholelithiasis. Prominent wall thickening of the duodenum and proximal small bowel may be seen in the setting of enteritis. 7 mm ground-glass nodule within the right lower lobe. Follow-up 6-12 months. Dictated and Authenticated by: Servando Tolentino MD. Ordering:ANSELMO Stratton MD
== END 2020-01-25 15:57 | disposition home or self-care (01) ==
PROVIDERS: Emergency Provider Emergency Medicine; PCP Nurse Practitioner Family
DX: K21.9 Gastro-esophageal reflux disease without esophagitis (principal); K80.20 Calculus of gallbladder without cholecystitis without obstruction; R91.1 Solitary pulmonary nodule
CPT/HCPCS: 36415; 71275; 74177; 80053; 93005; 99285; 71046; 83735; 83880; 84484; 85025; 85379; 93010; 99284; J3490

== ENCOUNTER 2020-01-27 00:31 | Outpatient (CLI) | payer OTHER, SELFPAY ==
--- NOTE | 2020-01-27 09:00 | ETT_ITS ---
APPROVED REPORT Exam: Exercise Treadmill Patient Location: Out-Patient Room/Bed: BMI: 33.89 Baseline Rhythm: Sinus Rhythm Indications: Chest Pain Medical History Medical History: HTN Cardiac Medications: Amlodipine/ Norvasc Allergies: lisinopril Cardiac Risk Factors: HTN, FHX of CAD Pretest Chest Pain Characteristics: No chest pain Exercise History: Physically active Lung Sounds: Clear to auscultation Heart Sounds: Regular Stress Test Details Test: Exercise stress testing was performed using a Tato protocol. Rest Stress HR Resting HR Supine: 72 bpm Max Heart Rate (APMHR): 160 bpm Resting HR Standin bpm Target HR (85% APMHR): 136 bpm Max HR Achieved: 169 bpm % of APMHR: 105 Recovery HR: 93 bpm HR response to stress: Accelerated HR response to stress BP Resting BP Supine: 146/104 mmHg Resting BP Standin/100 mmHg Max BP: 182/96 mmHg Recovery BP: 158/100 mmHg BP response to stress: Abnormal hypertensive response to stress. ECG Resting ECG: Sinus Rhythm Stress ECG: Sinus Tachycardia ST Change: Upsloping ST depression Stage: [address] Deviation: 2.2 mm Arrhythmia: APC's, VPC's Recovery ECG: Sinus Rhythm Comment: 3/10 chest tightness in stage 2 theough 5 mins of recovery Clinical Reason for Termination: Target HR Achieved Stress Symptoms: Chest pain, Dyspnea, Dizziness Exercise duration: 7 min29 sec Highest Stage Reached: Stage 3: 3.4 mph at 14% grade. Exercise capacity: 9.35 METs Functional Capacity: Average Capacity Stress ECG Conclusion 1. The resting electrocardiogram was normal 2. Patient exercised on the Tato protocol and completed a workload of 9.35 METS. She achieved 100% of predicted heart rate for age 3. Normal heart rate and blood pressure response to exercise 4. Electrocardiographically there was no evidence of myocardial ischemia 5. Patient described chest tightness in stage II of exercise which persisted through minute 5 of ana very 6. There were sporadic atrial and ventricular ectopic beats 7. Jo treadmill score is 5, which is low risk, 99% survival at 5 years Critical Notification Critical Value: No
== END 2020-01-27 00:51 ==
PROVIDERS: PCP Nurse Practitioner Family; Visit Provider Emergency Medicine
DX: R07.89 Other chest pain (principal); I10 Essential (primary) hypertension; Z82.49 Family history of ischemic heart disease and other diseases of the circulatory system
CPT/HCPCS: 93017

== ENCOUNTER 2020-06-10 01:26 | Outpatient (CLI) | payer OTHER, SELFPAY ==
--- NOTE | 2020-06-10 | DI.US_ITS ---
EXAM: US THYROID CLINICAL HISTORY: MULTI NODULAR GOITER,E04.2. TECHNIQUE: Ultrasound thyroid performed using standard protocol. COMPARISON: US US thyroid from 09/30/2018 US US thyroid from 09/30/2018 FINDINGS: ISTHMUS: 5 millimeters mm RIGHT LOBE: Size: 5.6 x 2.6 x 3.3 cm Echogenicity: Heterogeneous Vascularity: Normal. Nodules: Multiple nodules. Nodule 1: 2.7 centimeter smoothly marginated mixed cystic and solid nodul e near the lower pole. Unchanged in size and appearance. TI-RADS2. Nodule 2:2.3 centimeter nodule the mid to upper pole. Smooth margins, mixed cystic and solid, isoechoic, no echogenic foci, TI-RAD S 2. LEFT LOBE: Size: 5.7 x 2.5 x 2.4 cm Echogenicity: Heterogeneous Vascularity: Normal. Nodules: Nodule 3: 2.3 cm smoothly marginated, mixed cystic and solid, isoechoic nodule, no echogenic foci. TI-RADS 2 OTHER FINDINGS: None. IMPRESSION: Stable appearance of multi nodular goiter. Stable appearance of dominant nodules. TI-RADS category 2. DATA REPOSITORY:
== END 2020-06-10 01:46 ==
PROVIDERS: PCP Nurse Practitioner Family; Visit Provider Otolaryngology
DX: E04.2 Nontoxic multinodular goiter (principal)
CPT/HCPCS: 76536

== ENCOUNTER 2020-08-02 17:31 | Emergency (ER) | payer BC, SELFPAY ==
[2020-08-02] VITALS (25 sets, daily range): BP systolic 129–166; BP diastolic 77–115; PULSE 50–66; RESP 11–21; TEMP 36.5–36.7; O2SAT 93–97
--- NOTE | 2020-08-02 17:30 | RT.EKG_ITS ---
APPROVED REPORT Exam: Resting ECG Patient Location: E HR:58 bpm ECG Measurements Heart Rate 58 AXIS MO 176 P 46 QRSd 90 QRS -5 QT 421 T 48 QTc 414 Conclusion Sinus bradycardia...rate< 60 I have reviewed and interpreted ECG and agree with software generated interpretation.
--- NOTE | 2020-08-02 17:41 | ED.GENADUL_ITS ---
Discharge Plan Discharge Details Chief Complaint: Chest Pain Primary Care Provider: Celestina Caldwell ED Provider: Elaine Lockett Home Meds and New Rx's Prescriptions: No Action ascorbic acid (vitamin C) [Vitamin C] 500 MG tablet 500 mg PO DAILY RF: 0 cholecalciferol (vitamin D3) 1,000 UNIT capsule 1,000 unit PO DAILY RF: 0 tumeric TID RF: 0 acetaminophen [Acetaminophen Pain Relief] 500 mg Tablet 1,000 mg PO Q6H PRN PRNRF: 0 metoprolol succinate 50 mg tablet extended release 24 hr 50 mg PO DAILY RF: 0 hydrochlorothiazide 25 mg tablet 25 mg PO DAILY RF: 0 omeprazole magnesium [Prilosec OTC] 20 mg Tablet,Delayed Release (Dr/Ec) 20 mg PO DAILY RF: 0 <DYLAN Perdue - Last Filed: 08/02/20 19:09> Patient is a 59-year-old female presents today with chief complaint of chest pressure. She attributes to metoprolol. She states she began the metoprolol this Sunday evening. She reports that she has been having intermittent chest pressure as well as shortness of breath. Reports that she is currently feeling fairly short of breath but is not having any of the pressure. Reports that she continues take her metoprolol. She does have difficulty with medications hi storically, in particular does help with hypertension. She reports that she was assessed by her primary care and her systolic was noted to be in the 130s prompting addition of the metoprolol last week. Medical history is pertinent for hyperlipidemia, hypertension, KIRSTEN, GERD. She denies personal history of CAD. Mother does have a history of CAD though diagnosed in her 50s but she denies mother having an acute PR. She denies any estrogen supplementation, no prolonged periods of being sedentary, no smoking, no recent travel. HPI <Karime Livingston DO - Last Filed: 08/02/20 17:41> General Date/Time Provider Initiated Documentation: 08/02/20 17:39 . Related Data Home Medications Medication Instructions Recorded Confirmed ascorbic acid (vitamin C) [Vitamin 500 mg PO DAILY 01/22/14 08/02/20 C] cholecalciferol (vitamin D3) 1,000 unit PO DAILY 05/12/14 08/02/20 Tumeric TID 12/11/14 12/25/18 acetaminophen [Acetaminophen Pain 1,000 mg PO Q6H PRN PRN 01/25/20 08/02/20 Relief] hydrochlorothiazide 25 mg PO DAILY 08/02/20 08/02/20 metoprolol succinate 50 mg PO DAILY 08/02/20 08/02/20 omeprazole magnesium [Prilosec OTC] 20 mg PO DAILY 08/02/20 08/02/20 Allergies Allergy/AdvReac Type Severity Reaction Status Date / Time lisinopril AdvReac Intermediate faitgue, Unverified 08/02/20 17:51 dizziness amlodipine AdvReac chest pain Unverified 08/02/20 17:51 General TAMIKA: 2 PFSH <Karime Livingston DO - Last Filed: 08/02/20 17:41> Surgical History (Updated 04/17/18 @ 14:36 by GdeSlon OK) Ligation of fallopian tube (10/11/05) Family History Mother Sleep apnea Heart disease Father Personal history of malignant neoplasm lung ca age 37 Brother Diabetes Hyperlipidemia Brother Hypertension Brother Hypertension Brother Hypertension Social History Smoking/Tobacco Use Status: Never Smoking risk assessment performed?: Yes Alcohol Intake: current Alcohol Intake frequency: holidays/special occasions only Drug use: Never Substance use type: does not use Household members: spouse Housing: house Number of Children: 2 What type of physical activity do you participate in: none Working smoke detector in home: Yes Fire extinguisher in home: Yes Carbon monox detector in home: Yes Do you feel safe at home: Yes Do you feel safe in your relationship?: Yes
--- NOTE | 2020-08-02 17:45 | DI.RAD_ITS ---
EXAM: XR CHEST 2V PA LATERAL CLINICAL HISTORY: chest pressure TECHNIQUE: 2D digital imaging was performed. COMPARISON: CR,XR XR CHEST 2V PA LATERAL from 01/25/2020 FINDINGS: MEDIASTINUM: Normal. HEART: Normal. PULMONARY VASCULATURE: Normal. LUNGS: There are low lung volumes. There is crowding of the pulmonary vasculature. No definite foca l consolidating infiltrate. PLEURAL SPACE: No pleural effusion or pneumothorax. BONE:Within normal limits for the patient's age. OTHER FINDINGS:Normal. IMPRESSION: No acute pulmonary findings. DATA REPOSITORY: RADIATION DOSE DELIVERED:
--- NOTE | 2020-08-02 17:46 | W.ED.GENAD ---
Discharge Plan Discharge Details Chief Complaint: Chest Pain Primary Care Provider: Niru Felix ED Provider: Elaine Lockett Home Meds and New Rx's Prescriptions: No Action ascorbic acid (vitamin C) [Vitamin C] 500 MG tablet 500 mg PO DAILY RF: 0 cholecalciferol (vitamin D3) 1,000 UNIT capsule 1,000 unit PO DAILY RF: 0 tumeric TID RF: 0 amlodipine 5 mg tablet 5 mg PO DAILY AM RF: 0 acetaminophen [Acetaminophen Pain Relief] 500 mg Tablet PRNRF: 0 famotidine 20 mg tablet 20 mg PO QHS Qty: 30 RF: 0 Medical Decision Making Patient is a 49-year-old female presents today with chief complaint of chest pressure. She attributes to metoprolol. She states she began the metoprolol this Sunday evening. She reports that she has been having intermittent chest pressure as well as shortness of breath. Reports that she is currently feeling fairly short of breath but is not having any of the pressure. Reports that she continues take her metoprolol. She does have difficulty with medications historically, in particular does help with hypertension. She reports that she was assessed by her primary care and her systolic was noted to be in the 130s prompting addition of the metoprolol last week. Medical history is pertinent for hyperlipidemia, hypertension, KIRSTEN, GERD. She denies personal history of CAD. Mother does have a history of CAD though diagnosed in her 50s but she denies mother having an acute AL. She denies any estrogen supplementation, no prolonged periods of being sedentary, no smoking, no recent travel. HPI General Date/Time Provider Initiated Documentation: 08/02/20 17:39. Related Data Home Medications Medication Instructions Recorded Confirmed ascorbic acid (vitamin C) [Vitamin 500 mg PO DAILY 01/22/14 01/25/20 C] cholecalciferol (vitamin D3) 1,000 unit PO DAILY 05/12/14 01/25/20 Tumeric TID 12/11/14 12/25/18 acetaminophen [Acetaminophen Pain PRN 01/25/20 Relief] amlodipine 5 mg PO DAILY AM 01/25/20 01/25/20 famotidine 20 mg PO QHS #30 tab 01/25/20 Previous Rx's Medication Instructions Recorded famotidine 20 mg PO QHS #30 tab 01/25/20 Allergies Allergy/AdvReac Type Severity Reaction Status Date / Time lisinopril AdvReac Intermediate faitsalina, Unverified 12/25/18 16:36 dizziness General TAMIKA: 2 PFSH Surgical History (Updated 04/17/18 @ 14:36 by DosYogures [place]) Ligation of fallopian tube (10/11/05) Family History Mother Sleep apnea Heart disease Father Personal history of malignant neoplasm lung ca age 37 Brother Diabetes Hyperlipidemia Brother Hypertension Brother Hypertension Brother Hypertension Social History Smoking/Tobacco Use Status: Never Smoking risk assessment performed?: Yes Alcohol Intake: current Alcohol Intake frequency: holidays/special occasions only Drug use: Never Substance use type: does not use Household members: spouse Housing: house Number of Children: 2 What type of physical activity do you participate in: none Working smoke detector in home: Yes Fire extinguisher in home: Yes Carbon monox detector in home: Yes Do you feel safe at home: Yes Do you feel safe in your relationship?: Yes
[2020-08-02 18:16] LABS: Abs Immature Grans 0.03 10^3/uL (0.0-0.06); Absolute Basophil Count 0.05 10^3/uL (0.0-0.2); Absolute Eosinophil Count 0.14 10^3/uL (0.0-0.7); Absolute Lymphocyte Count 2.47 10^3/uL (1.2-3.4); Absolute Monocyte Count 0.45 10^3/uL (0.1-0.8); Absolute Neutrophil Count 4.76 10^3/uL (1.2-6.7); Basophils % 0.6; Eosinophils % 1.8; HCT 40.9 % (36.0-46.0); HGB 13.7 g/dL (11.2-15.7); Immature Grans % 0.4; Lymphocytes % 31.3; MCH 28.4 pg (27.0-33.0); MCHC 33.5 % (32.0-36.0); MCV 84.9 fL (80-95); Monocytes % 5.7; Neutrophils % 60.2; Nucleated RBC 0 %; Platelet Count 229 10^3/uL (130-400); RBC 4.82 10^6/uL (3.93-5.22); RDW 12.2 % (11.7-14.6); RDW-SD 37.7 fL
[2020-08-02 18:33] LABS: ALT 38 U/L (14-59); AST 24 U/L (15-37); Albumin 3.7 g/dL (3.4-5.0); Alkaline Phosphatase 67 U/L (46-116); Anion Gap 6.4 mmol/L (3-11); BUN 14 mg/dL (7-18); Bilirubin, Total 0.6 mg/dL (0.2-1.0); CO2 31.6 mmol/L (21.0-32.0); CREATININE 0.8 mg/dL (0.55-1.02); Calcium 9.4 mg/dL (8.5-10.1); Chloride 104 mmol/L (98-107); Glucose 105 mg/dL (74-106); Potassium 3.5 mmol/L (3.5-5.1); Sodium 142 mmol/L (136-145); Total Protein 7.4 g/dL (6.4-8.2)
[2020-08-02 18:35] LABS: PTT Activated 24.2 sec (21.0-27.5); Prothrombin Time 9.9 sec (9.3-11.0)
[2020-08-02 18:37] LABS: Troponin I < 0.05 ng/mL (<0.06)
--- NOTE | 2020-08-02 18:37 | DI.VRAD_ITS ---
PROCEDURE INFORMATION: Exam: XR Chest, 2 Views Exam date and time: 08/02/2020 6:15 PM Age: 59 years old Clinical indication: Pain; Chest pressure TECHNIQUE: Imaging protocol: XR of the chest Views: 2 views. COMPARISON: CR XR CHEST 2V PA LATERAL 01/25/2020 1:01 PM FINDINGS: Airway: The airways are patent. Lungs: Low lung volumes causes crowding of the bronchovascular structures. No significant interstitial or airspace disease is appreciated. Pleural spaces: No pleural effusions or pneumothorax. Heart/Mediastinum: Normal cardiomediastinal silhouette. Bones/joints: No acute abnormality or aggressive osseous lesion. IMPRESSION: Negative for acute thoracic pathology. Dictated and Authenticated by: Bubba Callaway MD. Ordering:RENITA Henry MD
[2020-08-02 18:50] LABS: D-Dimer 393 ng/mlFEU (<500)
--- NOTE | 2020-08-02 19:11 | W.ED.GENAD ---
Discharge Plan Disposition Patient Disposition: HOME Condition: Good Discharge Details Clinical Impression: Elevated blood pressure reading, Chest pressure Primary Care Provider: Celestina Caldwell ED Provider: Elaine Lockett Home Meds and New Rx's Prescriptions: Continued ascorbic acid (vitamin C) [Vitamin C] 500 MG tablet 500 mg PO DAILY RF: 0 cholecalciferol (vitamin D3) 1,000 UNIT capsule 1,000 unit PO DAILY RF: 0 tumeric TID RF: 0 acetaminophen [Acetaminophen Pain Relief] 500 mg Tablet 1,000 mg PO Q6H PRN PRNRF: 0 hydrochlorothiazide 25 mg tablet 25 mg PO DAILY RF: 0 omeprazole magnesium [Prilosec OTC] 20 mg Tablet,Delayed Release (Dr/Ec) 20 mg PO DAILY RF: 0 Discontinued metoprolol succinate 50 mg tablet extended release 24 hr 50 mg PO DAILY RF: 0 Discharge Instructions Instructions: Chest Pain (ED) Additional Instructions: Please continue to encourage water intake. Please encourage exercise as we discussed. Please continue with healthy eating. Your symptoms may be associated with your metoprolol based on your timeline of symptoms. Please stop this medication but discuss with yor primary care physician tomorrow. Please call tomorrow to schedule appointment in follow up. Please continue to check your blood pressure at home and discuss these readings with your primary care. If you develop chest pain, difficulty breathing, light headedness or other new/worsening symptoms please seek care urgently once again. Referrals: Celestina Caldwell [Primary Care Provider] - Medical Decision Making Patient is a 59-year-old female presents today with chief complaint of chest pressure. She attributes to metoprolol. She states she began the metoprolol this Sunday evening. She reports that she has been having intermittent chest pressure as well as shortness of breath. Reports that she is currently feeling fairly short of breath but is not having any of the pressure. Reports that she continues take her metoprolol. She does have difficulty with medications historically, in particular does help with hypertension. She reports that she was assessed by her primary care and her systolic was noted to be in the 130s prompting addition of the metoprolol last week. Medical history is pertinent for hyperlipidemia, hypertension, KIRSTEN, GERD. She denies personal history of CAD. Mother does have a history of CAD though diagnosed in her 50s but she denies mother having an acute AK. She denies any estrogen supplementation, no prolonged periods of being sedentary, no smoking, no recent travel. EKG was obtained and reviewed by Dr. Livingston. Patient is in normal sinus rhythm at a rate of 58. No acute ischemic changes noted. On exam patient is resting comfortably. She appears to be no distress. Normal cardiac exam. Lungs are clear in all randolph. No lower extremity edema. 2+ distal pulses. No abdominal pain palpation Primary concern for this patient is ACS. However, her history, as pointed by the patient, may also like this to be getting metoprolol as symptoms began shortly after her initial dosing. She has been able to walk without any worsening of her symptoms. Patient states that she did have a stress test completed approximately 6 months ago with no abnormalities noted. She reports that she had this after beginning amlodipine which caused similar symptoms. She not lightheaded or dizzy. Aside from age, the patient is PERC negative. Plan to evaluate for pulmonary embolism further with a D-dimer. History is not consistent with aortic dissection. Not worsened by food, I see no evidence to suggest esophageal source. Chest x-ray reviewed by radiologist: FINDINGS: Airway: The airways are patent. Lungs: Low lung volumes causes crowding of the bronchovascular structures. No significant interstitial or airspace disease is appreciated. Pleural spaces: No pleural effusions or pneumothorax. Heart/Mediastinum: Normal cardiomediastinal silhouette. Bones/joints: No acute abnormality or aggressive osseous lesion. IMPRESSION: Negative for acute thoracic pathology. Labs reviewed. No leukocytosis. Stable H&H. No electrolyte abnormalities. Troponin is within normal limits. D-dimer less than 500. Discussed the findings with the patient. The symptoms have been ongoing for 2 days now, I do not feel that repeat troponin is warranted point. Patient will follow up with her primary care. She is only taken 3 doses of the metoprolol, she will stop this and evaluate for any persistent symptoms. States that she has been monitoring her blood pressure at home prior to starting metoprolol and that typically her blood pressure was around 120/80. Advised she discuss this further with his primary care and discuss need for continued or change medication. Strict return precautions were discussed. As she had a stress test 6 months ago, do not plan to refer her at this point for any further. All of her questions and concerns were addressed and she is in agreement this plan. HPI General Mode of arrival: ambulatory. Date/Time Provider Initiated Documentation: 08/02/20 17:39. Limitations to Documentation: no limitations. Information obtained by: patient and RN notes reviewed. History of Present Illness 59 year old F presents to the emergency department with the chief complaint of chest pressure, shortness of breath, described as mild (denies any discomfort at this time), Quality is described as other (pressure), and is localized to the chest. Patient reports no radiation. Patient started experiencing this day(s) (2) and it has been intermittent. No relieving factors improve symptom(s), No exacerbating factors reported . Patient notes no other symptoms.. Patient did receive the following treatments prior to arrival, none Related Data Home Medications Medication Instructions Recorded Confirmed ascorbic acid (vitamin C) [Vitamin 500 mg PO DAILY 01/22/14 08/02/20 C] cholecalciferol (vitamin D3) 1,000 unit PO DAILY 05/12/14 08/02/20 Tumeric TID 12/11/14 12/25/18 acetaminophen [Acetaminophen Pain 1,000 mg PO Q6H PRN PRN 01/25/20 08/02/20 Relief] hydrochlorothiazide 25 mg PO DAILY 08/02/20 08/02/20 omeprazole magnesium [Prilosec OTC] 20 mg PO DAILY 08/02/20 08/02/20 Allergies Allergy/AdvReac Type Severity Reaction Status Date / Time lisinopril AdvReac Intermediate faitgue, Unverified 08/02/20 17:51 dizziness amlodipine AdvReac chest pain Unverified 08/02/20 17:51 General Stated Complaint: Chest Pain TAMIKA: 2 Review of Systems Constitutional Constitutional: Reports as per HPI, Denies chills, Denies fever(s), Denies headache(s), Denies lethargy and Denies poor appetite Eyes Eyes: Denies change in vision ENT Ears, Nose, Mouth, and Throat: Denies dizziness and Denies headache(s) Cardiovascular Cardiovascular: Reports as per HPI, Denies dyspnea and Denies dyspnea on exertion Respiratory Respiratory: Reports as per HPI, Denies chest congestion, Denies cough, Denies pain on inspiration, Denies pain with cough, Denies dyspnea, Denies dyspnea on exertion and Denies wheezing Gastrointestinal Gastrointestinal: Reports as per HPI, Denies abdominal pain, Denies diarrhea, Denies nausea and Denies vomiting Musculoskeletal Musculoskeletal: Reports as per HPI and Denies back pain Integumentary/Breasts Skin/Breast: Reports as per HPI and Denies rash Neurologic Neurologic: Reports as per HPI, Denies dizziness and Denies headache(s) Allergic/Immunologic Allergic/Immunologic: Denies wheezing [facility] Surgical History Ligation of fallopian tube (10/11/05) Family History Mother Sleep apnea Heart disease Father Personal history of malignant neoplasm lung ca age 37 Brother Diabetes Hyperlipidemia Brother Hypertension Brother Hypertension Brother Hypertension Social History Smoking/Tobacco Use Status: Never Smoking risk assessment performed?: Yes Alcohol Intake: current Alcohol Intake frequency: holidays/special occasions only Drug use: Never Substance use type: does not use Household members: spouse Housing: house Number of Children: 2 What type of physical activity do you participate in: none Working smoke detector in home: Yes Fire extinguisher in home: Yes Carbon monox detector in home: Yes Do you feel safe at home: Yes Do you feel safe in your relationship?: Yes Exam Const General: cooperative, healthy appearing, comfortable, no acute distress and well developed Nutritional Appearance: average body habitus and well nourished Orientation: alert, awake and oriented x3 HENMT Head: normal to inspection Ears: hearing grossly normal bilaterally Mouth: moist mucous membranes Chest Chest: normal inspection of the chest, normal palpation of entire chest wall and no crepitus Resp Effort & Inspection: normal respiratory effort, able to speak in complete sentences and no respiratory distress Auscultation: clear to auscultation bilaterally, no rales, no rhonchi and no wheezes Cardio Rate: regular rate Rhythm: regular rhythm Heart Sounds: S1 normal and S2 normal GI Inspection: normal to inspection, no edema and non-distended Palpation: soft, no hepatosplenomegaly, not firm, no guarding, not rigid and nontender Auscultation: normal bowel sounds Back/Spine/Pelvis Back: no CVA tenderness Thoracic/Lumbar Spine: thoracic and lumbar spine normal to inspection Skin General skin exam: no rashes or lesions noted Trauma: no lacerations or abrasions Neuro General: patient alert, patient awake and patient oriented x3 Cognition: normal cognition Speech: speech normal Gait: normal gait Extrem General: normal to inspection, capillary refill normal, no pedal edema, no calf tenderness and normal gait Psych Appearance: grossly normal and well kempt Mental Status: mental status grossly normal Speech and Movement: speech and movement normal Course Vital Signs Vital signs: Vital Signs Pulse 66 08/02/20 17:43 Respiratory Rate 19 08/02/20 17:43 Blood Pressure 166/115 H 08/02/20 17:43 Pulse Oximetry 97 08/02/20 17:43 Temperature 36.7 C 08/02/20 17:46 Temperature Source Temporal Artery Scan 08/02/20 17:46 Pulse 58 L 08/02/20 18:23 Pulse 58 L 08/02/20 18:24 Respiratory Rate 20 08/02/20 18:24 Respiratory Effort Non-Labored 08/02/20 18:14 Respiratory Depth Normal 08/02/20 18:14 Respiratory Pattern Normal 08/02/20 18:14 Blood Pressure 155/90 H 08/02/20 18:23 Blood Pressure Mean 107 08/02/20 18:23 Blood Pressure Position Supine 08/02/20 17:46 Pulse Oximetry 95 08/02/20 18:24 Oxygen Delivery Method Room Air 08/02/20 17:46 Oxygen Flow Rate 0 08/02/20 17:46 Pain Level 0 08/02/20 18:14 Lab/Test Results Lab/Test Results: Laboratory Tests Range/Units 08/02/20 08/02/20 08/02/20 18:05 18:05 18:05 WBC (4.4-10.8) 10^3/uL 7.90 RBC (3.93-5.22) 10^6/uL 4.82 Hgb (11.2-15.7) g/dL 13.7 Hct (36.0-46.0) % 40.9 MCV (80-95) fL 84.9 MCH (27.0-33.0) pg 28.4 MCHC (32.0-36.0) % 33.5 RDW (11.7-14.6) % 12.2 Plt Count (130-400) 10^3/uL 229 MPV (8.0-11.0) fL 10.0 Immature Gran % 0.4 Neutrophils % 60.2 Lymphocytes % 31.3 Monocytes % 5.7 Eosinophils % 1.8 Basophils % 0.6 Nucleated RBC % % 0 Absolute Neutrophils (1.2-6.7) 10^3/uL 4.76 Absolute Lymphocytes (1.2-3.4) 10^3/uL 2.47 Absolute Monocytes (0.1-0.8) 10^3/uL 0.45 Absolute Eosinophils (0.0-0.7) 10^3/uL 0.14 Absolute Basophils (0.0-0.2) 10^3/uL 0.05 PT (9.3-11.0) sec 9.9 INR (0.9-1.1) 1.0 APTT (21.0-27.5) sec 24.2 D-Dimer (<500) ng/mlFEU 393 Sodium (136-145) mmol/L 142 Potassium (3.5-5.1) mmol/L 3.5 Chloride (98-107) mmol/L 104 Carbon Dioxide (21.0-32.0) mmol/L 31.6 Anion Gap (3-11) mmol/L 6.4 BUN (7-18) mg/dL 14 Creatinine (0.55-1.02) mg/dL 0.8 Estimated GFR/1.73 m2 (mL/min/1.73m2) >= 60.00 Glucose (74-106) mg/dL 105 Calcium (8.5-10.1) mg/dL 9.4 Magnesium (1.8-2.4) mg/dL 2.0 Total Bilirubin (0.2-1.0) mg/dL 0.6 AST (15-37) U/L 24 ALT (14-59) U/L 38 Alkaline Phosphatase (46-116) U/L 67 Troponin I (<0.06) ng/mL < 0.05 Total Protein (6.4-8.2) g/dL 7.4 Albumin (3.4-5.0) g/dL 3.7
== END 2020-08-02 19:44 | disposition home or self-care (01) ==
PROVIDERS: Emergency Provider Physician Assistant; PCP Family Medicine
DX: R07.89 Other chest pain (principal); I10 Essential (primary) hypertension; R06.02 Shortness of breath; T44.7X5A Adverse effect of beta-adrenoreceptor antagonists, initial encounter
CPT/HCPCS: 36415; 80053; 93005; 99285; 71046; 83735; 84484; 85025; 85379; 85610; 85730; 93010

== ENCOUNTER 2023-04-04 10:36 | Outpatient (REF) | payer BC, SELFPAY ==
[2023-04-04 16:39] LABS: Calculated LDL 104 mg/dL (<100); Cholesterol 178 mg/dL (<200); Glucose 111 mg/dL (74-106); HDL Cholesterol 61 mg/dL (40-60); TSH 0.77 uIU/mL (0.36-3.74); Triglyceride 69 mg/dL (<150)
[2023-04-04 17:11] LABS: FREE T4 1.01 ng/dL (0.76-1.46)
== END 2023-04-04 10:37 | disposition home or self-care (01) ==
LOC: NCHCN 10:36
PROVIDERS: PCP Nurse Practitioner Family; Visit Provider Nurse Practitioner Family
DX: E04.2 Nontoxic multinodular goiter (principal); Z00.00 Encounter for general adult medical examination without abnormal findings
CPT/HCPCS: 80061; 82947; 84439; 84443

== ENCOUNTER → 2023-05-26 12:07 | Outpatient (REF) | payer BC, SELFPAY ==
--- NOTE | 2023-05-26 12:15 | DI.RAD_ITS ---
Exam(s) XR ANKLE RT COMPLETE XR FOOT RT LIMITED EXAM: XR ANKLE RT COMPLETE and XR foot RT limited CLINICAL HISTORY: ankle pain. TECHNIQUE: 2D digital imaging was performed of the right limited foot and ankle. Five images were o btained. AP, lateral and oblique views were obtained. COMPARISON: No priors for comparison. FINDINGS: BONES: No acute fracture is present. No bony destructive lesion is seen. There is a small plantar ca lcaneal spur. JOINTS: The ankle mortise is normally aligned. SOFT TISSUE: Normal. IMPRESSION: No acute abnormality is seen in the ankle or foot. DATA REPOSITORY: RADIATION DOSE DELIVERED:
--- NOTE | 2023-05-26 12:55 | DI.VRAD_ITS ---
PROCEDURE INFORMATION: Exam: XR Right Ankle Exam date and time: 05/26/2023 12:28 PM Age: 62 years old Clinical indication: Pain; Ankle; Right TECHNIQUE: Imaging protocol: Radiologic exam of the right ankle. Views: 3 or more views. COMPARISON: No relevant prior studies available. FINDINGS: Bones/joints: There is no evidence of acute fracture in any of the visualized osseous structures.. There is no evidence of malalignment or dislocation of any visualized joint. Soft tissues: Normal. IMPRESSION: 1. There is no evidence of acute fracture in any of the visualized osseous structures.. 2. There is no evidence of malalignment or dislocation of any visualized joint. Dictated and Authenticated by: Chris Franklin MD. Ordering:COLBY Kc MD
--- NOTE | 2023-05-26 12:56 | DI.VRAD_ITS ---
PROCEDURE INFORMATION: Exam: XR Right Foot Exam date and time: 05/26/2023 12:30 PM Age: 62 years old Clinical indication: Pain; Foot; Right TECHNIQUE: Imaging protocol: Radiologic exam of the right foot. Views: 1 or 2 views. COMPARISON: CR XR ANKLE LT COMPLETE 05/26/2023 12:28 PM FINDINGS: Bones/joints: There is no evidence of acute fracture in any of the visualized osseous structures.. There is no evidence of malalignment or dislocation of any visualized joint. Soft tissues: Normal. IMPRESSION: 1. There is no evidence of acute fracture in any of the visualized osseous structures.. 2. There is no evidence of malalignment or dislocation of any visualized joint. Dictated and Authenticated by: Chris Franklin MD. Ordering:COLBY Kc MD
== END ==
LOC: DI 12:07
PROVIDERS: PCP Nurse Practitioner Family; Visit Provider Nurse Practitioner Family
DX: M25.571 Pain in right ankle and joints of right foot (principal)
CPT/HCPCS: 73610; 73620

== ENCOUNTER → 2023-07-16 03:37 | Outpatient (CLI) | payer BC, SELFPAY ==
--- OUTSIDE RECORDS SUMMARY | 2023-07-16 03:39 | XMS_ITS | Continuity of Care Document ---
Author Name Unknown Organization [facility] Ambulatory [facility] Address [address] [place] [address] Care Team Providers Care Parking Lot Signaler Name Role Phone Viral Coates DO Primary Care Physician Encounter [facility] NBR [id number] Date(s): 04/13/23 - 04/13/23 [facility] [address] [place] [address]- Encounter Diagnosis Women's annual routine gynecological examination(Discharge Diagnosis) - 04/13/23 FH: cancer(Discharge Diagnosis) - 04/13/23 Breast cancer screening(Discharge Diagnosis) - 04/13/23 Female stress incontinence(Discharge Diagnosis) - 04/13/23 Goiter(Discharge Diagnosis) - 04/13/23 Discharge Disposition: Home or Self Care Attending Physician: Sunday Colbert MD, FACOG Allergies, Adverse Reactions, Alerts Substance Reaction Severity Status lisinopril allergic reaction vs TIA Severe Act walt Metoprolol Succinate ER dizzy, palpitations Severe Active amLODIPine dyspnea/shortness of breath Severe Active Assessment and Plan Future Appointments Future Scheduled Tests Radiology* MG Mammo Screening Bilateral 04/19/23 Medications Advair Diskus 250 mcg-50 mcg inhalation powder BID, 1 Unknown, 0 Refill(s), 0 Refill(s) Start Date: 04/13/23 Status: Ordered ascorbic acid 500 mg oral tablet 2 Unknown, 0 Refill(s), 0 Refill(s) Start Date: 04/13/23 Status: Ordered calcium carbonate 600 mg (elemental Ca 240 mg) oral tablet 600 mg 1 tab, Oral, Daily, 0 Refill(s) Start Date: 04/13/23 Status: Ordered ibuprofen 200 mg oral tablet 2 Unknown, 0 Refill(s), 0 Refill(s) Start Date: 04/13/23 Status: Ordered magnesium gluconate 250 mg oral tablet 250 mg 1 tab, Oral, Daily, 0 Refill(s) Start Date: 04/13/23 Status: Ordered Multivitamins and Minerals 0 Refill(s), 0 Refill(s) Start Date: 04/13/23 Status: Ordered PriLOSEC OTC 20 mg oral delayed release tablet 0 Refill(s), 0 Refill(s) Start Date: 04/13/23 Status: Ordered Turmeric 4 Unknown, 0 Refill(s), 0 Refill(s) Start Date: 04/13/23 Status: Ordered Tylenol 325 mg oral tablet 2 Unknown, 0 Refill(s), 0 Refill(s) Start Date: 04/13/23 Status: Ordered Vitamin B Complex oral capsule 0 Refill(s), 0 Refill(s) Start Date: 04/13/23 Status: Ordered Vitamin D3 1000 intl units oral tablet 1 Unknown, 0 Refill(s), 0 Refill(s) Start Date: 04/13/23 Status: Ordered Problem List Condition Confirmation Course Effective Dates Status Health Status Informant Atrophic vaginitis Confirmed Active Diverticular disease Confirmed Active Essential hypertension Confirmed Active FH: cancer Confirmed Active Female stress incontinence Confirmed Active Gastroesophageal reflux disease without esophagitis Confirmed Active Idiopathic osteoarthritis Confirmed Active Nodule of lung Confirmed Active Non-toxic multinodular goiter Confirmed Active Pure hypercholesterolemia Confirmed Active Uncomplicated mild persistent asthma Confirmed Active Procedures Procedure Date Related Diagnosis Body Site Status Colonoscopy 1 08/2020 Completed Surgery, node removed from l walker and diaphragm 2 04/01/20 Completed Colonoscopy 2009 Completed Ablation, uterine 07/23/06 Complet ed Bilateral tubal ligation 10/10/05 Completed Carpal tunnel release, right Completed History of tonsillectomy Completed 1Repeat in 3 years 2benign 3repeat 10 years Vital Signs Most recent to oldest [Reference Range]: 1 Blood Pressure [90-140/60-90 mmHg] 130/8 2mmHg (04/13/23 3:39 PM) [place] Body Weight Calculated 59.3 kg (04/13/23 3:39 PM) Height 167.64 cm (04/13/23 3:39 PM) Height/Length Measured (inches) 66 inch (04/13/23 3:39 PM) Social History Social History Type Response Smoking Status Smoking tobacco use: Never tobacco user;Never entered on: 04/13/23 Sex Hospital Discharge Instructions Follow Up Care 02/08/2023 10:36:44 With:Return to this practice Address: When:Within 1 Year(s) Physician Outpatient Note * Sunday Colbert MD, FACOG: PERFORM, MODIFY Event Display: Office Clinic Note Physician Authored Date: [id number] ABNER HORTON :1960 Age:62 years Sex:Female Visit Date:04/13/2023 Primary Care Physician: Viral Coates DO Chief Complaint Well Woman Exam. Last mammogram 03/29/2022-Cat 2. Scheduled for 04/19/2023 at [facility]. Last pap 04/14/2019-neg, neg HPV. No abnormal Pap history. No PMB. Some stress incontinence. Bowels regular. Physical Exam Vitals & Measurements BP:??130/82?? HT:??167.64??cm?? General: [Alert and oriented, well nourished, no acute distress] HEENT: [Normocephalic, no acne or hirsutism.].?? Neck: [Supple, very large cystic goiter, no lymphadenopathy, no carotid bruit.]. Lungs: [Clear to auscultation, non-labored respiration].?? Heart: [Normal rate, regular rhythm, no murmurs].?? Breasts: [symmetrical, no masses, no skin discoloration, no abnormal nipple discharge, no palpable lymphadenopathy] Abdomen: [Soft, non-tender, non-distended, normal bowel sounds, no masses]. Musculoskeletal: [Grossly normal range of motion and strength, no tenderness or swelling]. Back: [No CVA or vertebral tenderness.] Skin: [Skin is warm, dry, no rashes], treace pretibial edema.. Neurologic: [Awake, alert, and absent patellar reflexes] Psychiatric: [Cooperative, appropriate mood and affect] Vulva:[normal external female genitalia, no masses, no atrophy, [place]???s and [place]???s glands normal] Bladder:[urethra and??bladder prolapse to introitus] Vagina:[mildly atrophic mucosa, normal vaginal discharge, no rectocele.] Cervix: [strawberry atrophic changes, no lesions or lacerations] Uterus:[normal size, shape, non tender, mobile, no prolapse] Adnexa:[no masses or tenderness] Perineum/Anus/Rectal:[no skin changes or polyps. Several hemorrhoids] ?? Assessment/Plan 1.??Women's annual routine gynecological examination??Z01.419 Doing well with good health habits. 2.??FH: cancer??Z80.9 Mammogram already ordered.?? Colonoscopy and pap up to date 3.??Breast cancer screening??Z12.39 Mammogram already ordered. 4.??Female stress incontinence??N39.3 Weak PC contractions.?? Suggest trying Kegels and possibly PTor anterior colporrhaphy and sling if not helping. 5.??Goiter??E04.9 Large goiter being followed by Dr. Coelho. Follow Up Instructions With When Contact Information Return to this practice In 1 year Additional Instructions: Problem List/Past Medical History Ongoing Atrophic vaginitis Diverticular disease Essential hypertension Female stress incontinence FH: cancer Gastroesophageal reflux disease without esophagitis Idiopathic osteoarthritis Nodule of lung Non-toxic multinodular goiter Pure hypercholesterolemia Uncomplicated mild persistent asthma Historical Procedure/Surgical History ???Colonoscopy (08/2020)???Surgery, node removed from lung and diaphragm (04/02/2020)???Colonoscopy(2009)???Ablation, uterine (07/24/2006)???Bilateral tubal ligation (10/11/2005)???Carpal tunnel release, right???History of tonsillectomy Medications Advair Diskus 250 mcg-50 mcg inhalation powder, BID ascorbic acid 500 mg oral tablet calcium carbonate 600 mg (elemental Ca 240 mg) oral tablet, 600 mg= 1 tab, Oral, Daily ibuprofen 200 mg oral tablet magnesium gluconate 250 mg oral tablet, 250 mg= 1 tab, Oral, Daily Multivitamins and Minerals PriLOSEC OTC 20 mg oral delayed release tablet Turmeric Tylenol 325 mg oral tablet Vitamin B Complex oral capsule Vitamin D3 1000 intl units oral tablet Allergies Metoprolol Succinate ER??(dizzy, palpitations) amLODIPine??(dyspnea/shortness of breath) lisinopril??(allergic reaction vs TIA) Social History Alcohol Current, Wine- Comments: socially, seldom Electronic Cigarette/Vaping Electronic Cigarette Use: Never. Employment/School Employed, Work/School description: customer service executive, [employer] fast food delivery driver. Exercise Exercise type: Walking.- Comments: Gardening, firewood Home/Environment Lives with Spouse. Living situation: Home/Independent. Sexual Sexually active: No. Substance Use Never Tobacco Never tobacco user Tobacco Use:. Never Smokeless Tobacco use:. Electronically Signed on 04/13/23 04:26 PM Sunday Colbert MD, FACOG Electronically Signed on 04/13/23 04:30 PM Sunday Colbert MD, FACOG Patient Care team information Care Team Personnel Name: Viral Coates DO Position: Physician Member Role: Primary Care Physician Address: Address: [address] [place] [id number] [place] Care Team Related Persons Name: LEONEL OCAMPO Address: Home [address] [place], [place] [id number] [facility]
--- OUTSIDE RECORDS SUMMARY | 2023-07-16 03:39 | XMS_ITS | Continuity of Care Document ---
Author Name Unknown Organization [facility] Address [address] [place] [id number] Care Team Providers Care Intermediate Frame Tender Name Role Phone Viral Coates DO Primary Care Physician [phone] [facility] NBR [id number] Date(s): 04/19/23 - 04/19/[address] [address] Encounter Diagnosis Encounter for screening mammogram for malignant neoplasm of breast(Final) - Discharge Disposition: Home or Self Care Attending Physician: MARTY LOOMIS Admitting Physician: MARTY LOOMIS Referring Physician: MARTY LOOMIS Allergies, Adverse Reactions, Alerts Substance Reaction Severity Status lisinopril allergic reaction vs TIA Severe Act walt Metoprolol Succinate ER dizzy, palpitations Severe Active amLODIPine dyspnea/shortness of breath Severe Active Medications Advair Diskus 250 mcg-50 mcg inhalation [...] in 3 years 2benign 3repeat 10 years Results Radiology Reports * Exam Date Time Procedure Performing Provider Status 04/19/23 7:04 AM MG Mammo Screening Bilateral Ena Cotton; Auth (Verified) Notes: (MG Mammo Screening Bilateral) Reason For Exam: SCREENING MG Mammo Screening Bilateral EXAM DESCRIPTION: MG Mammo Screening Bilateral 04/19/2023 INDICATION: SCREENING COMPARISON: 03/29/2022 and 08/25/2020 BREAST DENSITY: There are scattered areas of fibroglandular density. FINDINGS: MLO and CC views were performed with digital breast tomosynthesis. Images were reviewed using computer aided detection. No asymmetry, architectural distortion or suspicious grouping of calcifications to suggest malignancy in either breast. Scattered benign-type calcifications bilaterally which were seen previously ASSESSMENT: No mammographic evidence of malignancy. Benign findings. BI-RADS category 2. RECOMMENDATION: Screening mammography in 1 year JOB #: [id number] Final Signed by: Mak Tomlinson MD Signed (Electronic Signature): 04/19/2023 8:34 am Social History Social History Type Response Smoking Status Smoking tobacco use: Never tobacco user;Never entered on: 04/13/23 Sex Patient Care team information Care Team Personnel Name: Virla Coatse DO Position: Physician Member Role: Primary Care Physician Address: Address: [address] [place] [phone] [place] Care Team Related Persons Name: LEONEL OCAMPO Address: Home [address] [place] [phone] [facility]
--- NOTE | 2023-07-16 06:45 | DI.RAD_ITS ---
Exam(s) XR FOOT RT COMPLETE EXAM: XR FOOT RT COMPLETE CLINICAL HISTORY: Right foot pain,m79.671. TECHNIQUE: 2D digital imaging was performed. COMPARISON: CR,XR XR FOOT RT LIMITED from 05/26/2023 FINDINGS: 3 views No evidence of fracture or diastasis of the Lisfranc joint. There are no obvious degenerative change s in the foot. No erosions. Moderate size inferior calcaneal spur again noted. No calcification in the plantar fascia. IMPRESSION: No significant radiograph findings in the right foot nor significant change compared to prior images of 05/26/2023. DATA REPOSITORY: RADIATION DOSE DELIVERED:
== END ==
PROVIDERS: PCP Nurse Practitioner Family; Visit Provider Podiatrist
DX: M79.671 Pain in right foot (principal)
CPT/HCPCS: 73630

== ENCOUNTER 2023-08-31 08:08 | Day surgery (SDC) | payer BC, SELFPAY ==
--- NOTE | 2023-08-30 19:29 | W.COLOREPORT ---
Date of service: 08/31/23 Time of Service: 10:10 Colonoscopy Report Date of procedure: 08/31/23 Pre-op diagnosis general: hx of sessile serrated adenoma x4 Post-op diagnosis procedure note: other (Internal and external hemorrhoids and diverticula) Surgeon: Laura Girard Anesthesia Type: General:No Airway Estimated blood loss (mL): 0 Pathology: none sent Complications: None Disposition: same day Prep: Miralax/Dulcolax Procedure Description: After informed consent was obtained the patient was taken to the procedure room and placed in a left decubitous position. Monitors were applied and a time out was done. The patients name, date of , procedure, allergies to medications and metal in their body was reviewed. The patient was then sedated. Once sedated and comfortable a rectal exam was done. External exam : External hemorrhoids with no signs of inflammation or thrombosis internal exam revealed a normal sphincter tone and no palpable masses. The scope was then introduced and retrofelexed. internal hemorrhoidal tags were identified. The scope was then advanced to the cecum without difficulty. The TI and appendiceal orifice were identified. The scope was then slowly retracted over 9 minutes back into the rectum. There are no polyps or AVMs visualized today. She does have a few largemouth diverticula confined to the sigmoid colon. There is no signs of active bleeding or infection. The scope was removed and the patient was woken up and taken back to Same day surgery in stable condition. The patient tolerated the procedure well and there were no immediate complications. Follow up: The patient should follow up in 5 years unless they develop changes in bowel habits or other new gastrointestinal complaints.
--- NOTE | 2023-08-30 19:33 | PDOC.DSDIS_ITS ---
Date of service: 08/31/23 Time of Service: 11:13 Discharge Plan Disposition Patient Disposition: Home Condition: Good Discharge Details Reason For Visit: colon scope Attending Provider: Laura Girard Primary Care Provider: Chantelle Craft Home Meds and New Rx's Prescriptions: Continued ascorbic acid (vitamin C) [Vitamin C] 500 mg tablet 1 g PO DAILY cholecalciferol (vitamin D3) 1,000 UNIT capsule 1,000 unit PO DAILY albuterol sulfate 90 mcg/actuation HFA aerosol inhaler 2 puff inhalation Q4H vitamin B complex [B Complex-Vitamin B12] Tablet 1 tab PO DAILY acetaminophen [Acetaminophen Pain Relief] 500 mg Tablet 1,000 mg PO Q6H PRN PRN magnesium 200 mg tablet 400 mg PO DAILY omeprazole magnesium [Prilosec OTC] 20 mg Tablet,Delayed Release (Dr/Ec) 20 mg PO DAILY Discontinued bisacodyl [Dulcolax (bisacodyl)] 5 mg tablet,delayed release (DR/EC) 5 mg PO ONCE Qty: 4 0RF Rx Instructions: Colonoscopy Bowel Prep- Per Instructions polyethylene glycol 3350 17 gram/dose powder 238 g PO ONCE Qty: 238 0RF Rx Instructions: Colonoscopy Bowel Prep- Per Instructions Discharge Instructions Additional Instructions: DSU Colonoscopy Post- Op Instructions Instructions for Everyone who is given Anesthesia: For your safety, please do the following for the next twenty-four (24) hours: *Do Not operate a motor vehicle (car, truck, motorcycle, etc.) *Do Not drink alcoholic beverages or use any recreational drugs for the first 24 hours or while taking pain medications. The medications in your body may have a reaction that can be dangerous. *Do Not make any important decisions or sign any important papers. Findings: -Diverticula of sigmoid colon. Make sure you are moving your bowels on a regular basis and not straining to go to the bathroom. If you find you are having problems with constipation or straining, then it is recommended you start a fiber supplement such as Metamucil. -No polyps were found today Follow up: 5 years 1. No lifting over 20 pounds or strenuous activity for the first 24 hours after your procedure. After 24 hours there are no restrictions on your activity but you may feel fatigued for a few days. 2. After you arrive home you may have a light meal and return to your normal diet as you can tolerate it without feeling sick to your stomach. 3. You may have a bloated, gaseous feeling in your belly (abdomen) after a colonoscopy. Passing gas and belching will help. Walking or lying down on your left side with your knees flexed may relieve the discomfort. Call the office at [phone] (Office) or [phone] (Hospital) right away if you notice any of the following: a.Vomiting of blood or ?coffee ground stools?. b.Rectal bleeding 1Tbsp, blood clots or continuous bleeding. c.Severe belly (abdominal) pain. d.A hard distended belly (abdomen) and an inability to pass gas. 4. Please don?t expect to have a normal BM (bowel movement) for 2-3 days after your procedure. 5. If there are questions regarding the findings of your procedure, please contact your doctor 6. If you are unable to contact your doctor with a problem, contact the hospital at [phone]. 7. Continue all your regular medications unless directed otherwise. I understand the above instructions and have no questions. Signature of Patient or Adult Escort Name of Responsible Adult Escort Signature of Nurse Date/Time Stand Alone Forms: Anesthesia Discharge InstCorina, Fredy Ricks (DSU) Activity:: see above Diet:: see above Discharge Orders Discharge Orders: Discharge Order (Routine); Ordered 08/31/23 Ordered By: Laura Girard DS: Diagnosis Discharge Diagnosis (1) Nontoxic multinodular goiter: Status: Acute (2) Obesity: Status: Chronic (3) Steatosis of liver: Status: Acute (4) Solitary lung nodule: Status: Acute (5) Hypertension: (6) Hyperlipidemia: (7) GERD (gastroesophageal reflux disease): (8) Obstructive sleep apnea: (9) Serrated adenoma of colon: Status: Acute Asessment and Plan: The patient is seen and examined after their colonoscopy.? The patient has been able to pass gas.? They are not having abdominal pain.? They have been able to tolerate liquids and a snack.? They do not have any nausea or vomiting.? They are not having any chest pain or shortness of breath.??? They are not having any rectal bleeding. Their vital signs have been stable-see nursing notes. We discussed findings during their colonoscopy, and any biopsies that were done/polyps that were removed. The patient will be sent a letter with any biopsy results, and when to repeat the colonoscopy.-see discharge instructions. Patient was given explicit instructions to follow-up regarding colonoscopy-refer to discharge instructions.? We reviewed resumption of medications. Patient verbalized understanding and discharged in stable and satisfactory condition- See nursing notes. (10) Diverticula of colon: Status: Acute
[2023-08-31 08:15] VITALS: BP 143/95; PULSE 85; RESP 18; TEMP 36.4; O2SAT 95
[2023-08-31] MEDS: Lactated Ringers 1,000 ML 80 ML IV (08:55)
[2023-08-31 09:36] VITALS: BMI 34.2
--- NOTE | 2023-08-31 09:36 | W.ANESPRE ---
General Info Date of Service Date Performed: 08/31/23 Height: 5 ft 5 in Weight: 93.5 kg Body Mass Index (BMI): 34.2 Surgical Procedure: Operation Date: 08/31/23 09:05 Proposed Procedure Side Surgeon p Colonoscopy Laura Girard DO Actual Procedure Side Surgeon p Colonoscopy Not Applicable Laura Girard, Pre-Op Diagnosis Post-Op Diagnosis colon scope Meds Allergies and Home Medications Allergies Allergy/AdvReac Type Severity Reaction Status Date / Time lisinopril AdvReac Intermediate faitgue, Verified 08/31/23 08:31 dizziness amlodipine AdvReac chest pain Verified 08/31/23 08:31 toprol Allergy Intermediate Other (See Uncoded 08/31/23 08:31 Comment) Home Medication Medication Instructions Recorded cholecalciferol (vitamin D3) 25 1,000 unit PO DAILY 05/12/14 mcg (1,000 unit) capsule acetaminophen 500 mg tablet 1,000 mg PO Q6H PRN PRN 01/25/20 (Acetaminophen Pain Relief) omeprazole magnesium 20 mg 20 mg PO DAILY 08/02/20 tablet,delayed release (Prilosec OTC) ascorbic acid (vitamin C) 500 mg 1 g PO DAILY 06/07/21 tablet (Vitamin C) albuterol sulfate 90 mcg/actuation 2 puff inhalation Q4H 07/06/23 aerosol inhaler vitamin B complex (B 1 tab PO DAILY 07/23/23 Complex-Vitamin B12 tablet) magnesium 200 mg tablet 400 mg PO DAILY 08/29/23 Current Visit Medications: Current Medications Generic Name Dose Route Start Last Admin Trade Name Freq PRN Reason Stop Dose Admin Hyoscyamine Sulfate 0.125 mg 08/31/23 03:57 Hyoscyamine 0.125 Mg Sl/Oral/Chew SL 09/30/23 03:56 DIRECTED PRN Ringer's Solution 1,000 mls @ 80 mls/hr 08/31/23 06:00 08/31/23 08:55 IV 09/29/23 23:59 80 mls/hr INFUSION NELSON Administration IV Miscellaneous Supplies 1 each 08/31/23 06:00 Iv Access IV 09/29/23 23:59 DIRECTED NELSON Ondansetron HCl 4 mg 08/31/23 03:57 Ondansetron 4 Mg/2 Ml Vial IVP 09/30/23 03:56 Q4H PRN PRN Nausea / Vomiting Sodium Chloride 0 ml 08/31/23 06:00 Normal Saline Flush 10 Ml Syr IV 09/29/23 23:59 PRN PRN Sodium Chloride 0 ml 08/31/23 06:00 Normal Saline 10 Ml Vial IJ 09/29/23 23:59 DIRECTED PRN Sterile Water 0 ml 08/31/23 06:00 Water,Injection,Sterile 10 Ml Vial IJ 09/29/23 23:59 DIRECTED PRN PFSH Active Problems Active Problems: Problem Status Onset Code Serrated adenoma of colon D12.6 Cramping of feet R25.2 Edema R60.9 Pain in right foot M79.671 Peroneal tendinitis, right leg M76.71 Cholelithiasis without obstruction K80.20 Pain of left foot M79.672 Solitary lung nodule R91.1 Steatosis of liver K76.0 Benign neoplastic disease D36.9 Arterial bruit R09.89 Low back pain M54.50 Obesity E66.9 Nontoxic multinodular goiter E04.2 Dyspnea R06.00 Tachycardia R00.0 Palpitations R00.2 Medical History Medical History Hyperlipidemia Hypertension Retinal hemorrhage of right eye 09/16/18 [facility] visit [facility] Sofie Mcclure MD Anterior scleritis of right eye 09/16/18 office visit [facility]. Sofie Mcclure MD Horseshoe tear of retina without detachment, right eye 09/16/18 office visit [facility]. Sofie Mcclure MD Vitreous degeneration of left eye 09/16/18 office visit [facility]. Sofie Mcclure MD Vitreous degeneration of right eye 09/16/18 office visit [facility]. Sofie Mcclure MD Allergic rhinitis (12/11/14) Obstructive sleep apnea (06/12/14) Multinodular goiter (01/22/14) Carlos Coelho MD u/s 05/31/19 GERD (gastroesophageal reflux disease) Surgical History Surgical History History of surgery of uterus ablation surgery Hx of colonoscopy Hx of tonsillectomy Hx of carpal tunnel repair Ligation of fallopian tube (10/11/05) Tobacco Smoking/Tobacco Use Status: Never Alcohol Alcohol Intake: current Alcohol intake frequency: a few times a month Substance Use Substance use: Never Substance use type: does not use Vital Signs and Lab Results Vital Signs Most Recent Vital Signs in EMR: Most Recent Vital Signs Temp Pulse Resp BP Pulse Ox 36.4 C L 85 18 143/95 H 95 08/31/23 08:15 08/31/23 08:15 08/31/23 08:15 08/31/23 08:15 08/31/23 08:15 Lab Results Blood Type / Crossmatch: No Data to Display Complete Blood Count: No Data to Display Complete Metabolic Panel: No Data to Display Liver Function Panel: No Data to Display Coagulation Panel: No Data to Display Cardiac Panel: No Data to Display Arterial Blood Gas: No Data to Display Venous Blood Gas: No Data to Display Pancreas Panel: No Data to Display Thyroid Panel: No Data to Display Infectious Disease: No Data to Display Blood Cultures: No Data to Display Toxicology Panel: No Data to Display Anesthesia Assessment and Plan Anesthesia History Personal History: No History of Anesthesia Complications Family History: No Family History of Anesthesia Complications Exercise Tolerance Exercise Tolerance: Metabolic Equivalents>4 Pertinent Negatives Pertinent Negatives: No Symptoms of GERD Cardiac & Pulmonary Exam Cardiac Exam: Normal S1/S2 Heart Sounds Pulmonary Exam: Clear Bilateral Breath Sounds Implantable Cardiac Device Does patient have a Pacemaker or an ICD?: No Airway Exam Known Difficult Airway: No Mallampati Class: 1 Mouth Opening: Normal (> 3cm) Thyromental Distance: Greater than 3 cm Neck Range of Motion: Full ROM Neck Circumference: Normal Teeth Condition: Normal Dentition ASA Classification ASA Score: ASA 2 Emergency Case?: No NPO Status NPO Status: NPO Clears >2 hours, Solids >8 hours Anesthesia Plan Resuscitation Status: Full Code Anesthesia Technique: General Anesthesia Airway Planned: Natural Airway Monitors Used: Standard Monitors
[2023-08-31 10:09] VITALS: BP 117/73; PULSE 74; RESP 16; TEMP 36.4; O2SAT 94
--- NOTE | 2023-08-31 10:13 | W.ANESPOSTOP ---
Postoperative Evaluation Date, Time and Location Date Performed: 08/31/23 Time Performed: 10:13 Patient Location: Day Surgery Unit Vital Signs Most Recent Imported Vital Signs: Most Recent Vital Signs Temp Pulse Resp BP Pulse Ox 36.4 C L 74 16 117/73 94 08/31/23 10:09 08/31/23 10:09 08/31/23 10:09 08/31/23 10:08/31/23 10:09 Pain Score Most Recent Pain Score: Most Recent Pain Score Pain Level 0 08/31/23 10:09 Assessment Mental Status: Awake (Alert & Oriented to Patient Baseline) Airway and Respiratory Function: Patent airway with normal (patient baseline) respiratory exam Cardiovascular Function: Hemodynamically Stable Hydration Status: Adequately Hydrated Nausea & Vomiting: No Nausea or Vomiting Pain: Pt. Denies Any Pain Peripheral Nerve Block: Patient did not receive a nerve block
[2023-08-31 10:37] VITALS: BP 132/85; PULSE 72; RESP 16; TEMP 36.4; O2SAT 96
== END 2023-08-31 08:09 | disposition home or self-care (01) ==
LOC: SUR 08:09
PROVIDERS: PCP Nurse Practitioner Family; Visit Provider Surgery
PROC: 0DJD8ZZ Inspection of Lower Intestinal Tract, Via Natural or Artificial Opening Endoscopic (ICD-10-PCS; CPT 45378; principal; 2023-08-31 09:00)
DX: Z12.11 Encounter for screening for malignant neoplasm of colon (principal); Z86.010 Personal history of colon polyps; K64.4 Residual hemorrhoidal skin tags; K64.8 Other hemorrhoids; K57.30 Diverticulosis of large intestine without perforation or abscess without bleeding
CPT/HCPCS: 45378; J2001; J2704

== ENCOUNTER 2024-02-08 09:49 | Outpatient (CLI) | payer BC, SELFPAY ==
--- NOTE | 2024-02-08 08:45 | DI.RAD_ITS ---
Exam(s) XR KNEE LT 3V AP,LAT,LUCRETIA EXAM: XR KNEE LT 3V AP,LAT,LUCRETIA CLINICAL HISTORY: evaluate OA,LT KNEE PAINI, M25.562. TECHNIQUE: 2D digital imaging was performed. Three views. COMPARISON: No exams were available for comparison FINDINGS: BONES: No acute fracture is present. No bony destructive lesion is seen. JOINTS: The knee is normally aligned. No joint effusion is seen. Angy-js-sorjeaml narrowing of the medial femoral tibial joint space. Periarticular spurring. Spurring at the articular aspect of the patella. SOFT TISSUE: Normal. IMPRESSION: Asmt-ue-zskgoohx degenerative changes. DATA REPOSITORY: RADIATION DOSE DELIVERED:
== END 2024-02-11 02:38 ==
LOC: DI 09:49
PROVIDERS: PCP Nurse Practitioner Family; Visit Provider Nurse Practitioner Family
DX: M17.12 Unilateral primary osteoarthritis, left knee (principal)
CPT/HCPCS: 73562

== ENCOUNTER 2025-01-23 09:00 | Outpatient (CLI) | payer BC, SELFPAY ==
--- NOTE | 2025-01-23 08:45 | DI.RAD_ITS ---
Exam(s) XR HIP RT COMPLETE AP PELVIS EXAM: XR HIP RT COMPLETE AP PELVIS CLINICAL HISTORY: Rt hip pain, M25.551. TECHNIQUE: 2D digital imaging was performed. Three views. COMPARISON: CR XR hip LT complete AP pelvis from 12/26/2018 FINDINGS: BONES: No acute fracture is present. No bony destructive lesion is seen. JOINTS: No dislocation present. SI joints and pubic symphysis are unremarkable. There is moderate to severe narrowing of the right hip joint space. There is acetabular spurring. There is minimal spurring at the margin of the femoral head. There is mild spurring at the left acetabulum. There are severe degenerative changes in the lower lumbar spine as well as scoliosis. SOFT TISSUE: Normal. IMPRESSION: Moderate to severe degenerative changes of the right hip. Severe degenerative disc changes are noted in the lower lumbar spine. DATA REPOSITORY: RADIATION DOSE DELIVERED:
== END 2025-01-23 09:20 ==
LOC: DI 09:01
PROVIDERS: PCP Nurse Practitioner Family; Visit Provider Family Medicine
DX: M16.11 Unilateral primary osteoarthritis, right hip (principal)
CPT/HCPCS: 73502

== ENCOUNTER 2025-04-24 03:26 | Outpatient (CLI) | payer OTHER, SELFPAY ==
[2025-04-24 07:51] LABS: Hemoglobin A1C 5.7 % (<5.7)
[2025-04-24 08:21] LABS: Anion Gap 9.5 mmol/L (3-11); BUN 29 mg/dL (7-18); CO2 26.5 mmol/L (21.0-32.0); Calcium 10.2 mg/dL (8.5-10.1); Calculated LDL 111 mg/dL (<100); Chloride 105 mmol/L (98-107); Cholesterol 178 mg/dL (<200); Estimated GFR 81.72 (mL/min/1.73m2); Glucose 108 mg/dL (74-106); HDL Cholesterol 47 mg/dL (>or=50); Potassium 4.1 mmol/L (3.5-5.1); Sodium 141 mmol/L (136-145); TSH (W/Ref FT4) 1.64 uIU/mL (0.36-3.74); Triglyceride 101 mg/dL (<150)
== END 2025-04-24 03:27 | disposition home or self-care (01) ==
PROVIDERS: PCP Nurse Practitioner Family; Referring Provider Nurse Practitioner Family; Visit Provider Nurse Practitioner Family
DX: Z00.00 Encounter for general adult medical examination without abnormal findings (principal); E04.2 Nontoxic multinodular goiter; I10 Essential (primary) hypertension
CPT/HCPCS: 36415; 80048; 80061; 83036; 84443

== ENCOUNTER → 2025-05-13 01:16 | Outpatient (CLI) | payer OTHER, SELFPAY ==
--- NOTE | 2025-05-13 06:15 | DI.DEXA_ITS ---
Exam(s) XR DEXA BONE DENSITY W/WO LEELEE EXAM: XR DEXA BONE DENSITY W/WO LEELEE CLINICAL HISTORY: Screening for osteoporosis postmenopausal status,z78.0 TECHNIQUE: Conexus-IT C densitometer analysis of left hip, lumbar spine and left forearm. Lateral survey image of the thoracic and lumbar spine. COMPARISON: CR XR HIP RT COMPLETE AP PELVIS from 01/23/2025 FINDINGS: Lateral view of the thoracic and lumbar spine shows accentuation of the normal thoracic kyphosis but no evidence of compression fractures. There are also lumbar scoliosis and degenerative changes Bone mineral density measurements of the lumbar spine correspond to a total T- score of -2.1, in the normal range Bone mineral density measurements of the left hip correspond to a total T-score of 1.7. The femoral neck T-score is 0.5, in the normal range. Theleft forearm bone mineral density measurements correspond to a T-score of the distal 3rd of -0.2, in the normal range. IMPRESSION: Normal bone mineral density.
--- NOTE | 2025-05-13 08:08 | DI.MAMMO_ITS ---
Exam(s) MAMMO SCREENING EXAM: MAMMO SCREENING CLINICAL HISTORY: screening,z12.39 TECHNIQUE: Mammograms were interpreted according to the usual protocol including computer analysis with CAD system, tomosynthesis and C-view imaging. COMPARISON: 2015 through 2022 FINDINGS: The breasts are composed of scattered fibroglandular densities, Breast Density category B. No suspicious masses or suspicious microcalcifications are seen. No skin thickening or abnormal axillary lymph nodes are seen. There has been no significant change from prior exams. IMPRESSION: BI-RADS Category 1, Negative mammogram Yearly screening mammography is recommended. Breast Density - Category B - There are scattered areas of fibroglandular density. Breast density Category C or D implies that the patient has dense breast tissue. Dense breast tissue can make it harder to find cancer on a mammogram. Dense breast tissue is also associated with an increased risk of breast cancer. This information about the result of the mammogram report was provided to the patient to raise their awareness. Use this report when you speak with the patient about their risks for breast cancer, which includes their family history. At that time, you may recommend additional screening tests (Ultrasound or MRI) as these tests may add significant information. A negative radiographic report should not delay biopsy if a dominant or clinically suspicious mass is present. Up to ten percent of cancers are not identified on mammography. A negative report may reinforce clinical impression. Adenosis and dense breasts may obscure an underlying neoplasm. False positive reports average 6 to 10%. Patient will receive a letter notifying them of these results.
== END ==
LOC: DI 01:16
PROVIDERS: PCP Nurse Practitioner Family; Visit Provider Nurse Practitioner Family
DX: Z78.0 Asymptomatic menopausal state (principal); Z12.31 Encounter for screening mammogram for malignant neoplasm of breast; R92.323 Mammographic fibroglandular density, bilateral breasts
CPT/HCPCS: 77063; 77067; 77080

== ENCOUNTER 2025-05-15 07:51 | Outpatient (CLI) | payer OTHER, SELFPAY ==
--- NOTE | 2025-05-15 07:45 | RT.EKG_ITS ---
APPROVED REPORT Exam: Resting ECG Reason for Exam: preop Patient Location: O HR:94 bpm ECG Measurements Heart Rate 94 AXIS WI 187 P 37 QRSd 84 QRS -21 QT 349 T 43 QTc 437 Conclusion Sinus rhythm...normal P axis, V-rate 50- 99 Borderline left axis deviation...QRS axis (-15,-29)
== END 2025-05-15 07:52 | disposition home or self-care (01) ==
LOC: DI.KIM 07:53
PROVIDERS: PCP Nurse Practitioner Family; Visit Provider Nurse Practitioner Family
DX: Z01.818 Encounter for other preprocedural examination (principal)
CPT/HCPCS: 93010